=== PATIENT | female | born 1945 | race Asian ===

== ENCOUNTER 2020-08-06 13:58 | Inpatient (IN) | payer MEDICARE, OTHER ==
[~2020-08-06] VITALS: Ht 152.4 cm; Wt 56.2 kg
--- NOTE | 2020-08-06 14:00 | NUR ---
PT BIB FAMILY, O2SAT DECREASED TO 78%,87% ON RA DURING TRIAGE, COVID +. PT IS AAOX2, HOOKED TO O2 VIA NC AND HOOKED TO PHYSICIAN RELATIONS MANAGER, KEPT RESTED AND COMFORTABLE. WILL CONTINUE TO MONITOR.
--- NOTE | 2020-08-06 14:18 | NUR ---
IV LINE ESTABLISHED.
--- NOTE | 2020-08-06 14:23 | NUR ---
AT BEDSIDE FOR EVAL.
--- NOTE | 2020-08-06 15:11 | NUR ---
covid swab antigen collected sent to lab
[2020-08-06 15:24] LABS: BASOPHILS % (AUTO) 0.4 % (0.0-2.0); HEMATOCRIT 36 % (33-45); HEMOGLOBIN 12.2 g/dL (11.5-14.8); LYMPHOCYTES # (AUTO) 0.7 /CMM (0.8-4.8); LYMPHOCYTES % (AUTO) 11.3 % (20.0-44.0); MEAN CORPUSCULAR HGB CONC 34 g/dl (31.0-36.0); MEAN CORPUSCULAR VOLUME 90 fL (82-100); MONOCYTES # (AUTO) 0.2 /CMM (0.1-1.30); NEUTROPHILS # (AUTO) 5.1 /CMM (1.8-8.9); NEUTROPHILS % (AUTO) 85.3 % (43.0-81.0); PLATELET COUNT (AUTO) 268 /CMM (150-450); RED BLOOD CELL COUNT(AUTO) 3.99 MIL/uL (4.0-5.2)
[2020-08-06] MEDS ORDERED: AZITHROMYCIN 500 MG in IV D5W 250 ML IV ONE (15:30)
[2020-08-06] MEDS ORDERED: AZTREONAM 1 G in IV NS 0.9% 100 ML IV ONE (15:30)
[2020-08-06] MEDS ORDERED: DEXAMETHASONE SOD PHOSPHATE 10 MG/ML VIAL IV ONE (15:30)
[2020-08-06 15:39] LABS: ABG BASE EXCESS -1.1 mmol/L; ABG OXYGEN SATURATION 95.7 % (92.0-98.5); ABG PCO2 33.2 mmHg (35.0-45.0); ABG PH 7.446 (7.350-7.450); ABG PO2 83.4 mmHg (75.0-100.0); AaDO2 77.1 mmHg; COHb 0.2 % (0.5-1.5); MetHb 0.2 % (0.0-1.5); O2Hb 95.3 % (94.0-97.0); SITE, ABG Right Radial; VENT MODE, BG Nasal Cannula
[2020-08-06 15:46] LABS: CALCIUM, SERUM 8.4 mg/dL (8.5-10.1); CARBON DIOXIDE 28 mmol/L (21-32); CHLORIDE 96 mmol/L (98-107); CREATININE 0.9 mg/dL (0.6-1.3); GLUCOSE 114 mg/dL (74-106); POTASSIUM 3.9 mmol/L (3.5-5.1); SODIUM SERUM 131 mmol/L (136-145); UREA NITROGEN, BLOOD 12 mg/dL (7-18)
[2020-08-06 15:51] LABS: ALANINE AMINOTRANSFERASE 39 U/L (12-78); ALBUMIN 2.5 g/dL (3.4-5.0); ALKALINE PHOSPHATASE 77 U/L (46-116); ASPARTATE AMINOTRANSFERASE 58 U/L (15-37); BILIRUBIN,DIRECT 0.2 mg/dL (0.0-0.2); BILIRUBIN,TOTAL 0.6 mg/dL (0.2-1.0); TOTAL PROTEIN, SERUM 6.9 g/dL (6.4-8.2)
[2020-08-06] MEDS ORDERED: DEXAMETHASONE SOD PHOSPHATE 10 MG/ML VIAL ONE (15:51)
[2020-08-06 16:08] LABS: D-DIMER 0.96 mg/L(FEU (0.17-0.50)
[2020-08-06] MEDS ORDERED: ZINC50TA65 PO (16:09)
[2020-08-06] MEDS ORDERED: CYAN-51 PO (16:09)
[2020-08-06] MEDS ORDERED: ASCO-352 PO (16:09)
[2020-08-06] MEDS ORDERED: METO25TA4 PO (16:09)
[2020-08-06] MEDS ORDERED: LOSA1TAB36 PO (16:09)
[2020-08-06] MEDS ORDERED: ATOR10TA PO (16:09)
[2020-08-06 16:32] LABS: CREATINE KINASE, TOTAL 46 U/L (26-192); FERRITIN 2015 ng/mL (8-388)
[2020-08-06 16:37] LABS: C-REACTIVE PROTEIN 8.2 mg/dL (0.0-0.9)
--- NOTE | 2020-08-06 16:58 | NUR ---
urine collected sent to lab
[2020-08-06 17:14] LABS: BILIRUBIN,URINE Negative (NEGATIVE); COLOR,URINE YELLOW (YELLOW); LEUKOCYTE ESTERASE ,URINE Negative (NEGATIVE); NITRITE, URINE Negative (NEGATIVE); PROTEIN,URINE Negative (NEGATIVE); UGLUCOSE Negative (NEGATIVE); UROBILINOGEN,URINE 0.2 EU/dL (0.2)
[2020-08-06] MEDS ORDERED: HYDROCODONE/APAP 5/325MG TABLET PO PRN (18:30)
[2020-08-06] MEDS ORDERED: MAGNESIUM HYDROXIDE 30 ML UDC PO PRN (18:30)
[2020-08-06] MEDS ORDERED: ZOLPIDEM TARTRATE 5 MG TABLET PO PRN (18:30)
[2020-08-06] MEDS ORDERED: MAG HYDROX/AL HYDROX/SIMETH 30 ML UDC PO PRN (18:30)
[2020-08-06] MEDS ORDERED: ACETAMINOPHEN 325 MG TABLET PO PRN (18:30)
[2020-08-06] MEDS ORDERED: Z GUARD REMEDY 2 OZ OINT TP PRN (18:30)
[2020-08-06] MEDS ORDERED: ONDANSETRON HCL/PF 4 MG/2 ML VIAL IVP PRN (18:30)
[2020-08-06] MEDS ORDERED: ENOXAPARIN SODIUM 40 MG/0.4 ML DISP.SYRIN SQ ONE (18:40)
[2020-08-06 18:41] LABS: C-REACTIVE PROTEIN 8.5 mg/dL (0.0-0.9)
[2020-08-06] MEDS: ENOXAPARIN SODIUM 40 MG/0.4 ML DISP.SYRIN SQ SCH (18:41)
--- NOTE | 2020-08-06 19:30 | NUR ---
pt admitted to transition area pending tele bed. pt here for sob, pt aaox4, -sob. on 2lnc sat above 95%, pt not in any distress, pt pending remdesivir tx. pt vss, wctm
[2020-08-06] MEDS ORDERED: REMDESIVIR (CHARGED) 200 MG, *LOADING DOSE 1 EA in IV NS 0.9% 210 ML IV ONE (20:00)
[2020-08-07 05:34] LABS: BASOPHILS % (AUTO) 0.3 % (0.0-2.0); HEMATOCRIT 39 % (33-45); HEMOGLOBIN 13.3 g/dL (11.5-14.8); LYMPHOCYTES # (AUTO) 0.6 /CMM (0.8-4.8); LYMPHOCYTES % (AUTO) 18.4 % (20.0-44.0); MEAN CORPUSCULAR HGB CONC 34 g/dl (31.0-36.0); MEAN CORPUSCULAR VOLUME 90 fL (82-100); MONOCYTES # (AUTO) 0.1 /CMM (0.1-1.30); MONOCYTES % (AUTO) 2.1 % (2.0-12.0); NEUTROPHILS # (AUTO) 2.4 /CMM (1.8-8.9); NEUTROPHILS % (AUTO) 79.2 % (43.0-81.0); PLATELET COUNT (AUTO) 278 /CMM (150-450); RED BLOOD CELL COUNT(AUTO) 4.29 MIL/uL (4.0-5.2); WHITE BLOOD COUNT (AUTO) 3.1 K/uL (4.3-11.0)
[2020-08-07 05:49] LABS: ALBUMIN 2.4 g/dL (3.4-5.0); BILIRUBIN,DIRECT 0.2 mg/dL (0.0-0.2); BILIRUBIN,TOTAL 0.4 mg/dL (0.2-1.0); CALCIUM, SERUM 8.6 mg/dL (8.5-10.1); CREATININE 0.8 mg/dL (0.6-1.3); MAGNESIUM 2.4 mg/dL (1.8-2.4); PHOSPHORUS 4.4 mg/dL (2.5-4.9); POTASSIUM 4.6 mmol/L (3.5-5.1); TOTAL PROTEIN, SERUM 7.1 g/dL (6.4-8.2)
[2020-08-07 05:55] LABS: D-DIMER 0.86 mg/L(FEU (0.17-0.50)
[2020-08-07 06:04] LABS: THYROID STIMULATING HORMONE 0.419 uIU/mL (0.358-3.74)
--- NOTE | 2020-08-07 07:36 | NUR ---
RECEIVED REPORT FROM CHARO COCHRAN FOR DESTINY. PT IS AAOX3, NOT IN RESPIRATORY DISTRESS, V/S STABLE, KEPT RESTED AND COMFORTABLE. WILL CONTINUE TO MONITOR.
[2020-08-07] MEDS ORDERED: PANTOPRAZOLE 40 MG TABLET.DR PO ONE (07:40)
[2020-08-07] MEDS: PANTOPRAZOLE 40 MG TABLET.DR PO SCH (07:45)
[2020-08-07] MEDS ORDERED: DEXAMETHASONE SOD PHOSPHATE 10 MG/ML VIAL ONE (08:17)
[2020-08-07] MEDS: ATORVASTATIN 10 MG TABLET PO SCH (08:37)
[2020-08-07] MEDS: DEXAMETHASONE SOD PHOSPHATE 10 MG/ML VIAL IV SCH (08:37)
[2020-08-07] MEDS: LOSARTAN/HCTZ 50-12.5MG/ 1 EA TABLET PO SCH (08:37)
[2020-08-07] MEDS: ASCORBIC ACID 500 MG TABLET PO SCH (08:38)
[2020-08-07] MEDS: CYANOCOBALAMIN 500 MCG TABLET PO SCH (08:38)
[2020-08-07] MEDS: ZINC SULFATE 220 MG CAPSULE PO SCH (08:38)
[2020-08-07] MEDS: METOPROLOL SUCCINATE 25 MG TAB.SR.24H PO SCH (08:38)
--- NOTE | 2020-08-07 08:38 | NUR ---
CLERICAL DENTIST ASSISTANT AT BEDSIDE FOR XRAY.
[2020-08-07] MEDS: IV 1/2NS 1000 ML 1,000 ML IV PRN (10:05)
--- NOTE | 2020-08-07 16:24 | NUR ---
AT BEDSIDE FOR EVAL.
[2020-08-07] MEDS: REMDESIVIR (CHARGED) 100 MG in IV NS 0.9% 100 ML IV SCH (20:59)
[2020-08-07] MEDS: ENOXAPARIN SODIUM 40 MG/0.4 ML DISP.SYRIN SQ SCH (22:47)
[2020-08-08] VITALS (7 sets, daily range): BP systolic 120–138; BP diastolic 59–79
--- NOTE | 2020-08-08 00:21 | NUR ---
BED ASSIGNMENT 205-2
--- NOTE | 2020-08-08 01:14 | NUR ---
report given to mari matias, pt will be transported to 2nd floor
--- NOTE | 2020-08-08 01:30 | NUR ---
initial vs show that patient saturating 84% on 6lnc. patient placed on 1liter face mask with spo2 increase to 85%. patient placed on nrb mask at 15liters now saturating at 92%. will cont to monitor.
--- NOTE | 2020-08-08 01:30 | NUR ---
ADMISSION PATIENT ORIENTED TO ROOM BED DOWN LOCKED IN NO APPARENT DISTRESS. CALL LIGHT PLACED WITHIN REACH. NEW ORDERS RECIEVED. PATIENT HAD TO BE PLACED ON 15 LNRB TO GET SPO2 GREATER THEN 92%. BED ALARM ACTIVATED. PT HAS RIGHT AC 20 GAUGE. FLUSHED IV INACT. Addendum: 08/08/20 at 0336 by KE MEZA RN TELE MONITOR APPLIED PT SR
--- NOTE | 2020-08-08 03:30 | NUR ---
ADMISSION NOTE PATIENT ADMITTED TO 205-2 TELEMETRY AT 0120 FROM ER FOR COVID 19 AND ACUTE RESP FAILURE. CALL MADE TO GRANDDAUGHTER FOR ADMISSION SCREENING. PATIENT PRIMARILY SPEAKS [place] WITH LIMITED CITIZEN OF [place]. GRAND DAUGHTER RASHAUN STATED SHE WAS SOMEWHAT FAMILIAR WITH GRANDMOTHERS MEDICAL HISTORY AND ANSWERED MOST ADMISSION QUESTIONS. SHE WAS UPDATED WITH PLAN OF CARE. EARLIER PATIENT WAS MOVED IN TO SHARE ROOM WITH . PT SATURATINT 97% ON 15 L NON REBREATHER. IN NO APPARENT DISTRESS AT THIS TIME. PT LIVES WITH ALONE IN SENIOR APARTMENT HOUSING. THEY DON'T HAVE ANY SPECIAL SERVICES AT THEIR PLACE OF RESIDENCE.
[2020-08-08] MEDS: IV 1/2NS 1000 ML 1,000 ML IV PRN (06:38)
[2020-08-08] MEDS: PANTOPRAZOLE 40 MG TABLET.DR PO SCH (06:40)
[2020-08-08 07:42] LABS: BASOPHILS % (AUTO) 0.1 % (0.0-2.0); HEMATOCRIT 38 % (33-45); LYMPHOCYTES # (AUTO) 0.9 /CMM (0.8-4.8); LYMPHOCYTES % (AUTO) 9.5 % (20.0-44.0); MEAN CORPUSCULAR HGB CONC 34 g/dl (31.0-36.0); MEAN CORPUSCULAR VOLUME 90 fL (82-100); MONOCYTES # (AUTO) 0.3 /CMM (0.1-1.30); MONOCYTES % (AUTO) 3.8 % (2.0-12.0); NEUTROPHILS # (AUTO) 7.8 /CMM (1.8-8.9); NEUTROPHILS % (AUTO) 86.6 % (43.0-81.0); PLATELET COUNT (AUTO) 352 /CMM (150-450); RED BLOOD CELL COUNT(AUTO) 4.22 MIL/uL (4.0-5.2); WHITE BLOOD COUNT (AUTO) 9.1 K/uL (4.3-11.0)
[2020-08-08 08:04] LABS: ALBUMIN 2.2 g/dL (3.4-5.0); BILIRUBIN,DIRECT 0.2 mg/dL (0.0-0.2); BILIRUBIN,TOTAL 0.4 mg/dL (0.2-1.0); CALCIUM, SERUM 8.5 mg/dL (8.5-10.1); CREATININE 0.8 mg/dL (0.6-1.3); POTASSIUM 4.3 mmol/L (3.5-5.1); TOTAL PROTEIN, SERUM 6.4 g/dL (6.4-8.2)
--- NOTE | 2020-08-08 08:04 | NUR ---
NEWS EDITOR OPENING NOTE PATIENT IS IN BED RESTING. PATIENT IS IN NO ACUTE DISTRESS. NO SOB NOTED. PATIENT IS ON NON REBREATHER ON 15L. PATIENT IS ON TUBE HEATER READING SR 71. SAFETY PRECAUTIONS ARE IN PLACE. BED IS LOCKED AND IN THE LOWEST POSITION. SIDE RAILS ARE UP CALL LIGHT WITHIN REACH. WILL CONTINUE TO MONITOR CLOSELY THROUGH OUT THE SHIFT.
--- NOTE | 2020-08-08 09:00 | NUR ---
CARTON MAKER NOTE PATIENT IN NEED OF MIDLINE AFTER MULTIPLE ATTEMPTS FOR PERIPHERAL IV. INFORMED SANDOR TOPETE. PER SANDOR VAUGHAN ORDER FOR MIDLINE. YASMEEN SPECIALTY MANUFACTURING SUPERVISOR AWARE. PER YASMEEN SHE INFORMED MIDLINE NURSE OF ORDER.
[2020-08-08] MEDS: DEXAMETHASONE SOD PHOSPHATE 10 MG/ML VIAL IV SCH (09:10)
[2020-08-08] MEDS: METOPROLOL SUCCINATE 25 MG TAB.SR.24H PO SCH (09:10)
[2020-08-08] MEDS: ASCORBIC ACID 500 MG TABLET PO SCH (09:11)
[2020-08-08] MEDS: ATORVASTATIN 10 MG TABLET PO SCH (09:11)
[2020-08-08] MEDS: ZINC SULFATE 220 MG CAPSULE PO SCH (09:11)
[2020-08-08] MEDS: CYANOCOBALAMIN 500 MCG TABLET PO SCH (09:11)
[2020-08-08] MEDS: LOSARTAN/HCTZ 50-12.5MG/ 1 EA TABLET PO SCH (09:12)
--- NOTE | 2020-08-08 12:46 | NUR ---
HOG KILLER NOTE SPOKE WITH DR. HUGHES. PER DR. HUGHES PLACE AN ORDER FOR 1 UNIT OF CONVALESCENT PLASMA. AWARE.
--- NOTE | 2020-08-08 15:36 | NUR ---
SHEET METAL WORKER HELPER NOTE PER YASMEEN MIDLINE NURSE COMING IN THE EVENING.
--- NOTE | 2020-08-08 19:49 | NUR ---
WAREHOUSE ASSISTANT CLOSING NOTE PATIENT IS IN BED RESTING. PATIENT IS ON NON REBREATHER MASK 15L. TOLERATING WELL. NO SOB NOTED. PATIENT KEPT CLEAN DRY AND COMFORTABLE THROUGH OUT THE SHIFT. PATIENT HAS NO IV ACCESS, AWAITING FOR MIDLINE PLACEMENT. NO SIGNS ON DISTRESS NOTED. SAFETY PRECAUTIONS ARE IN PLACE. BED IN THE LOWEST POSITION, WITH BREAK ON. SIDE RAILS ARE UP, CALL LIGHT WITHIN REACH. ENDORSE PATIENT TO THE DAIRY HELPER NURSE FOR DESTINY.
--- NOTE | 2020-08-08 19:50 | NUR ---
TELE/RN OPENING NOTES: RECEIVED PATIENT IN BED RESTING COMFORTABLY. A/OX4 VERBALLY RESPONSIVE AND ABLE TO MAKE NEEDS KNOWN. [place], BUT ABLE TO UNDERSTAND AND COMMUNICATE WITH MINIMAL AMERICAN. TELE READING OF SR. PATIENT IS ON NON REBREATHER MASK 15L. SATURATING WELL AT 93%. NO SOB NOTED. PATIENT HAS NO IV ACCESS, AWAITING FOR MIDLINE PLACEMENT TONIGHT. NO S/S OF ACUTE DISTRESS NOTED. SAFETY PRECAUTIONS ARE IN PLACE. BED IN THE LOWEST POSITION, WITH BREAK ON. SIDE RAILS ARE UP X2, CALL LIGHT WITHIN REACH. WILL CONTINUE TO MONITOR PT. CLOSELY.
[2020-08-08] MEDS: ENOXAPARIN SODIUM 40 MG/0.4 ML DISP.SYRIN SQ SCH (21:49)
--- NOTE | 2020-08-08 23:00 | NUR ---
TELE/RN NOTES: MIDLINE NURSE KALYAN AT BEDSIDE. MIDLINE PLACED ON THE RIGHT UA #18, INTACT AND PATENT. FLUSHING WELL. IVF RUNNING. PT HAS NO C/O PAIN AT THIS TIME.
[2020-08-08] MEDS: REMDESIVIR (CHARGED) 100 MG in IV NS 0.9% 100 ML IV SCH (23:14)
[2020-08-09] VITALS (10 sets, daily range): BP systolic 116–137; BP diastolic 72–81
[2020-08-09] MEDS: IV 1/2NS 1000 ML 1,000 ML IV PRN ×2 (06:30→22:12)
[2020-08-09 07:02] LABS: ALBUMIN 2.2 g/dL (3.4-5.0); BILIRUBIN,DIRECT 0.3 mg/dL (0.0-0.2); BILIRUBIN,TOTAL 0.6 mg/dL (0.2-1.0); CALCIUM, SERUM 8.3 mg/dL (8.5-10.1); CREATININE 0.8 mg/dL (0.6-1.3); POTASSIUM 3.9 mmol/L (3.5-5.1)
[2020-08-09 07:26] LABS: HEMATOCRIT 37 % (33-45); HEMOGLOBIN 12.6 g/dL (11.5-14.8); LYMPHOCYTES # (AUTO) 0.6 /CMM (0.8-4.8); LYMPHOCYTES % (AUTO) 6.9 % (20.0-44.0); MEAN CORPUSCULAR HGB CONC 35 g/dl (31.0-36.0); MEAN CORPUSCULAR VOLUME 90 fL (82-100); MONOCYTES # (AUTO) 0.1 /CMM (0.1-1.30); MONOCYTES % (AUTO) 1.6 % (2.0-12.0); NEUTROPHILS % (AUTO) 91.5 % (43.0-81.0); PLATELET COUNT (AUTO) 304 /CMM (150-450); RED BLOOD CELL COUNT(AUTO) 4.06 MIL/uL (4.0-5.2); WHITE BLOOD COUNT (AUTO) 8.7 K/uL (4.3-11.0)
--- NOTE | 2020-08-09 07:55 | NUR ---
TELE/RN CLOSING NOTES: PATIENT IN BED RESTING COMFORTABLY. A/OX4. NO SIGNIFICANT CHANGES IN CONDITION. TELE READING OF SR. PATIENT IS ON NON REBREATHER MASK 15L. SATURATING WELL AT 94%. NO SOB NOTED. IV ON THE BRANT MIDLINE 18G, WITH IVF RUNNING AT 75MLS/HR. NO S/S OF ACUTE DISTRESS NOTED. SAFETY PRECAUTIONS ARE IN PLACE. BED IN THE LOWEST POSITION, WITH BREAK ON. SIDE RAILS ARE UP X2, CALL LIGHT WITHIN REACH. ALL DUE MEDS GIVEN ORDERED. ALL NURSING NEEDS MET AND RENDERED. WILL CONTINUE PLAN OF CARE. ENDORSED TO DAY SHIFT RN FOR DESTINY.
[2020-08-09] MEDS: ASCORBIC ACID 500 MG TABLET PO SCH (08:34)
[2020-08-09] MEDS: ZINC SULFATE 220 MG CAPSULE PO SCH (08:34)
[2020-08-09] MEDS: DEXAMETHASONE SOD PHOSPHATE 10 MG/ML VIAL IV SCH (08:34)
[2020-08-09] MEDS: PANTOPRAZOLE 40 MG TABLET.DR PO SCH (08:35)
[2020-08-09] MEDS: ATORVASTATIN 10 MG TABLET PO SCH (08:35)
[2020-08-09] MEDS: CYANOCOBALAMIN 500 MCG TABLET PO SCH (08:35)
[2020-08-09] MEDS: METOPROLOL SUCCINATE 25 MG TAB.SR.24H PO SCH (08:36)
[2020-08-09] MEDS: LOSARTAN/HCTZ 50-12.5MG/ 1 EA TABLET PO SCH (08:36)
--- NOTE | 2020-08-09 11:17 | NUR ---
TELE/RN NOTE REDUCED OXYGEN FLOW FROM 15L/MIN TO 10L/MIN REDUCED OXYGEN FLOW FROM 15L/MIN VIA NON-REBREATHER MASK TO 10L/MIN NON-REBREATHER MASK AND OXYGEN SATURATION MAINTAINING AT 95%. WILL CONTINUE TO MONITOR..
--- NOTE | 2020-08-09 17:00 | NUR ---
TELE/RN NOTE OXYGEN FLOW INCREASED TO 15L/MIN FROM 10L/MIN VIA NON-REBREATHER MASK DUE PATIENT SATURATION LEVEL WAS 87% AT 10L/MIN VIA NON-REBREATHER MASK. WILL CONTINUE TO MONITOR.
--- NOTE | 2020-08-09 18:26 | NUR ---
TELE/RN CLOSING NOTE THE PATIENT IS ALERT AND ORIENTED X3. THE PATIENT DENIES PAIN. THE PATIENT IS RECEIVING OXYGEN AT 15L/MIN VIA NON-REBREATHER MASK. DENIES SOB. RESPIRATION REGULAR AND UNLABORED. THE PATIENT IS IN NO APPARENT DISTRESS. BRANT G 18 MIDLINE PATENT AND CONVALESCENT PLASMA INFUSING PER ORDER. NO S/S INFILTRATION OR ADVERSE SIDE EFFECTS NOTED. TELE BOX READING IS SR 70. BED LOW AND LOCKED. SIDE RAILS UP X3. CALL LIGHT WITHIN REACH. WILL CONTINUE TO MONITOR.
--- NOTE | 2020-08-09 20:26 | NUR ---
SAP BPC DEVELOPER OPENING NOTES PT RECEIVED AT BEDSIDE. PT ALERT AND ORIENTED X3. PRIMARY LANGUAGE IS SYRIAC. UNDERSTANDS BASIC COMMANDS. PT ON 15L NONREBREATHER. TOLERATING WELL. O2 SATURATION AT 97%. BRANT MIDLINE #18 . PATENT. NO SIGNS OF OCCLUSIONS, NO SIGNS OF INFILTRATION. PLASMA INFUSING PER ORDER. PT TOLERATING WELL. WILL CONTINUE TO MONITOR. WILL CONTINUE PLAN OF CARE.
[2020-08-09] MEDS: ENOXAPARIN SODIUM 40 MG/0.4 ML DISP.SYRIN SQ SCH (21:37)
[2020-08-09] MEDS: REMDESIVIR (CHARGED) 100 MG in IV NS 0.9% 100 ML IV SCH (23:07)
[2020-08-10] VITALS (9 sets, daily range): BP systolic 126–146; BP diastolic 66–83
--- NOTE | 2020-08-10 06:41 | NUR ---
MS2/RN PATIENT IS AWAKE, ALERT, ORIENTED, COMFORTABLE, NO C/O PAIN, NO DISTRESS NOTED, STILL ON 15L/MIN NRM, CALL LIGHT IN REACH, ALL NEEDS ATTENDED AT THIS TIME, WILL CONTINUE TO MONITOR.
--- NOTE | 2020-08-10 07:11 | NUR ---
FLAT KNITTER CLOSING NOTES PT LAYING IN BED. CALM, COOPERATIVE. ALERT AND ORIENTED TIMES 3. PRIMARY LANGUAGE IS AZERI, BUT ABLE TO COMMUNICATE WITH BASIC KHMER. vitals: 128/ 72, pulse 71, resp. 20, temp 97.9, o2 sat. 95%. SINUS RHYTHM 78. BRANT MIDLINE #18 FLUSHING WELL, PATENT. NO OCCLUSIONS, NO INFILTRATION. WILL ENDORSE TO LAP MACHINE OPERATOR. WILL CONTINUE TO MONITOR. WILL CONTINUE PLAN OF CARE.
[2020-08-10 07:14] LABS: BASOPHILS % (AUTO) 0.1 % (0.0-2.0); HEMATOCRIT 32 % (33-45); HEMOGLOBIN 11.2 g/dL (11.5-14.8); LYMPHOCYTES # (AUTO) 0.5 /CMM (0.8-4.8); LYMPHOCYTES % (AUTO) 6.4 % (20.0-44.0); MEAN CORPUSCULAR HGB CONC 35 g/dl (31.0-36.0); MEAN CORPUSCULAR VOLUME 90 fL (82-100); MONOCYTES # (AUTO) 0.2 /CMM (0.1-1.30); MONOCYTES % (AUTO) 2.3 % (2.0-12.0); NEUTROPHILS # (AUTO) 7.6 /CMM (1.8-8.9); NEUTROPHILS % (AUTO) 91.2 % (43.0-81.0); PLATELET COUNT (AUTO) 281 /CMM (150-450); RED BLOOD CELL COUNT(AUTO) 3.57 MIL/uL (4.0-5.2); WHITE BLOOD COUNT (AUTO) 8.4 K/uL (4.3-11.0)
[2020-08-10 07:27] LABS: BILIRUBIN,DIRECT 0.3 mg/dL (0.0-0.2); BILIRUBIN,TOTAL 0.6 mg/dL (0.2-1.0); CALCIUM, SERUM 8.4 mg/dL (8.5-10.1); CREATININE 0.6 mg/dL (0.6-1.3); MAGNESIUM 2.2 mg/dL (1.8-2.4); POTASSIUM 3.4 mmol/L (3.5-5.1); TOTAL PROTEIN, SERUM 5.7 g/dL (6.4-8.2)
[2020-08-10] MEDS: PANTOPRAZOLE 40 MG TABLET.DR PO SCH (08:45)
[2020-08-10] MEDS: LOSARTAN/HCTZ 50-12.5MG/ 1 EA TABLET PO SCH (08:45)
[2020-08-10] MEDS: ATORVASTATIN 10 MG TABLET PO SCH (08:45)
[2020-08-10] MEDS: CYANOCOBALAMIN 500 MCG TABLET PO SCH (08:45)
[2020-08-10] MEDS: ZINC SULFATE 220 MG CAPSULE PO SCH (08:46)
[2020-08-10] MEDS: METOPROLOL SUCCINATE 25 MG TAB.SR.24H PO SCH (08:46)
[2020-08-10] MEDS: ASCORBIC ACID 500 MG TABLET PO SCH (08:46)
[2020-08-10] MEDS: DEXAMETHASONE SOD PHOSPHATE 10 MG/ML VIAL IV SCH (08:46)
[2020-08-10] MEDS ORDERED: POTASSIUM CHLORIDE 20 MEQ TAB.PRT.SR PO SCH (10:00)
--- NOTE | 2020-08-10 13:00 | NUR ---
HOUSE VISITOR NOTES TITRATED PATIENTS OXYGEN TO 10L VIS SIMPLE MASK PER DR. ANDRADE ORDERS, PATIENTS SATURATION DROPED TO 80-82%. PATIENT PLACED BACK TO 15L NONE REBREATHER SATURATING 95%-97% WILL CONTINUE TO MONITOR.
--- NOTE | 2020-08-10 19:00 | NUR ---
STERILIZATION SPECIALIST NOTES PATIENT IN BED RESTING NO SOB OR ACUTE DISTRESS NOTED. PATIENT ON 15L NONE REBREATHER SATURATING ABOVE 95%. ALL DUE MEDICATIONS ADMINISTERED. ALL NEEDS MET. WILL ENDORSE CARE TO PM SHIFT.
--- NOTE | 2020-08-10 19:58 | NUR ---
RETAIL ACCOUNT SPECIALIST OPENING NOTES PT RECEIVED AT BEDSIDE. CALM, COOPERATIVE PRIMARY LANGUAGE IS UKRAINIAN. UNDERSTANDS BASIC COMMAND. ALERT AND ORIENTED X3. SINUS RHYTHM 78. PT ON 15L NONREBREATHER MASK. TOLERATING WELL. BRANT MIDLINE FLUSHING WELL, PATENT, INTACT. NO OCCLUSIONS, NO INFILTRATIONS. BED LOCKED, BED ALARM CHECKED. PT ON SEMI FOWLERS POSITION. WILL CONTINUE TO MONITOR. WILL CONTINUE PLAN OF CARE.
[2020-08-10] MEDS: ENOXAPARIN SODIUM 40 MG/0.4 ML DISP.SYRIN SQ SCH (20:39)
[2020-08-10] MEDS: REMDESIVIR (CHARGED) 100 MG in IV NS 0.9% 100 ML IV SCH (22:45)
[2020-08-11] VITALS: BP 123/76
[2020-08-11 04:00] VITALS: BP 124/80
--- NOTE | 2020-08-11 06:58 | NUR ---
MOISTURE CONDITIONER OPERATOR CLOSING NOTES PT LAYING IN BED. AWAKE. CALM, COOPERATIVE. ALERT AND ORIENTED X3. PRIMARY LANGUAGE IS NEPALI, UNDERSTANDS BASIC COMMANDS IN JAMAICAN. PT ON 15L NONREBREATHER. TOLERATING WELL. NO SOB NOTED. EVEN AND UNLABORED PULSE OX 100%. VITAL SIGNS: 124/80, PULSE 69, RESP.20, TEMP. 97.8. SINUS RHYTHM 86. BRANT MIDLINE PATENT, FLUSHING WELL. NO OCCLUSIONS. NO INFILTRATION. WILL CONTINUE TO MONITOR. WILL ENDORSE TO UPCOMING SHIFT. WILL CONTINUE PLAN OF CARE.
--- NOTE | 2020-08-11 07:03 | NUR ---
GAS DISPATCHER OPENING NOTE RECEIVED PT IN BED AWAKE AT THIS TIME. AOX4.NO S/S OF ANY ACUTE DISTRESS NOTED, NO C/O PAIN AT THIS TIME. PT NOTED ON 15LPM NON REBREATHER. EXTERNAL TELE MONITOR READING SR 89. BRANT MIDLINE NOTED, INTACT, PATENT AND FLUSHING WELL. ASPIRATIONS AND SAFETY PRECAUTIONS IN PLACE AND MAINTAINED AT ALL TIMES. BED IN LOWEST LOCKED POSITION, SIDE RAILS UP, HOB ELEVATED, TABLE AND CALL LIGHT WITHIN REACH. WILL CONTINUE TO MONITOR.
[2020-08-11 07:36] LABS: BASOPHILS % (AUTO) 0.1 % (0.0-2.0); HEMATOCRIT 34 % (33-45); HEMOGLOBIN 11.7 g/dL (11.5-14.8); LYMPHOCYTES # (AUTO) 0.6 /CMM (0.8-4.8); LYMPHOCYTES % (AUTO) 7.1 % (20.0-44.0); MEAN CORPUSCULAR HGB CONC 34 g/dl (31.0-36.0); MEAN CORPUSCULAR VOLUME 90 fL (82-100); MONOCYTES # (AUTO) 0.3 /CMM (0.1-1.30); MONOCYTES % (AUTO) 2.9 % (2.0-12.0); NEUTROPHILS # (AUTO) 7.9 /CMM (1.8-8.9); NEUTROPHILS % (AUTO) 89.9 % (43.0-81.0); PLATELET COUNT (AUTO) 311 /CMM (150-450); WHITE BLOOD COUNT (AUTO) 8.8 K/uL (4.3-11.0)
[2020-08-11 08:35] LABS: CALCIUM, SERUM 8.8 mg/dL (8.5-10.1); CREATININE 0.7 mg/dL (0.6-1.3); MAGNESIUM 2.6 mg/dL (1.8-2.4); PHOSPHORUS 3.3 mg/dL (2.5-4.9); POTASSIUM 4.1 mmol/L (3.5-5.1)
[2020-08-11] MEDS: CYANOCOBALAMIN 500 MCG TABLET PO SCH (09:56)
[2020-08-11] MEDS: ZINC SULFATE 220 MG CAPSULE PO SCH (09:56)
[2020-08-11] MEDS: ASCORBIC ACID 500 MG TABLET PO SCH (09:57)
[2020-08-11] MEDS: LOSARTAN/HCTZ 50-12.5MG/ 1 EA TABLET PO SCH (09:57)
[2020-08-11] MEDS: ATORVASTATIN 10 MG TABLET PO SCH (09:57)
[2020-08-11] MEDS: DEXAMETHASONE SOD PHOSPHATE 10 MG/ML VIAL IV SCH (09:58)
[2020-08-11] MEDS: METOPROLOL SUCCINATE 25 MG TAB.SR.24H PO SCH (09:58)
[2020-08-11] MEDS: PANTOPRAZOLE 40 MG TABLET.DR PO SCH (10:08)
--- NOTE | 2020-08-11 11:00 | NUR ---
RECEIVED ORDERS FROM DR HUGHES TO TITRATE PT FROM 15LPM NON REBREATHER TO 6LPM NC OR 10LPM FACE MASK TO KEEP SPO2>90%. ORDERS CARRIED OUT. PT'S SPO2 @ 91% ON 6LPM VIA NC. WILL CONTINUE TO MONITOR
--- NOTE | 2020-08-11 15:00 | NUR ---
RASHAUN ([phone]), PT'S DAUGHTER CALLED AND WAS UPDATED. WILL CONTINUE WITH PLAN OF CARE
--- NOTE | 2020-08-11 16:29 | NUR ---
PT ON OXYGEN 6LPM VIA NC, SPO2 OF 88%, TITRATED TO 10LPM FACE MASK PER DR NELSON, ORDERS. WILL CONTINUE TO MONITOR
--- NOTE | 2020-08-11 19:04 | NUR ---
RN CLOSING NOTES PT AWAKE IN BED AT THIS TIME. PT REMAINED STABLE THROUGHOUT SHIFT. ALL CARE, NEED, MEDICATIONS AND TREATMENT ADMINISTERED ANTICIPATED PER ORDER. PT KEPT CLEAN AND DRY. PT TITRATED TOLERATED. SAFETY PRECAUTION IN PLACE AND MAINTAINED AT ALL TIMES. BED IN LOWEST LOCKED POSITION, HOB ELEVATED, SIDE RAILS UP X 2, CALL LIGHT AND TABLE WITHIN REACH. ENDORSED TO CARTOGRAPHIC DESIGNER NURSE FOR DESTINY
--- NOTE | 2020-08-11 19:15 | NUR ---
RN NOTES: DURING ENDORSEMENT PATIENT IS ON NON -REBREATHER MASK AT 15L/MIN, PER RN THEY TRIED TO WEAN HER OFF SLOWLY TO NC BUT UNABLE TO TOLERATE AND DESATURATED NOW SHE IS BACK AGAIN TO NON-REBREATHER MASK, AT THIS TIME NO SOB NOTED, LOOKS COMFORTABLE SPO2-90%, A/0X2-3 LAO SPEAKING,ABLE TO COMMUNICATE IN FRENCH, ABLE TO MAKE NEEDS KNOWN,ORIENTED TO UNIT AND STAFF, FALL,SAFETY AND ASPIRATION PRECAUTION OBSERVED, KEPT CALL LIGHT WITHIN EASY REACH.
[2020-08-11 20:00] VITALS: BP 122/72
--- NOTE | 2020-08-11 20:00 | NUR ---
RN NOTES: -ASSISTED TO PEE USING THE BED BELL, WITH LITTLE EXERTION OF EFFORT SHE IS DESATURATING TO 88%, KEPT O2 AT 15L/MIN VIA NON RE-BREATHER MASK, SHE WAS BACK TO 90% AFTER SHE WAS PUT TO REST.
[2020-08-11] MEDS: ENOXAPARIN SODIUM 40 MG/0.4 ML DISP.SYRIN SQ SCH (21:45)
[2020-08-12] VITALS: BP 121/76
--- NOTE | 2020-08-12 00:17 | NUR ---
RN NOTES: AWAKE GIVEN SIPS OF WATER, TOLERATED, KEPT CALL LIGHT WITHIN EASY REACH, NOT IN RESPIRATORY DISTRESS.
[2020-08-12 04:00] VITALS: BP 124/75
--- NOTE | 2020-08-12 04:07 | NUR ---
RN NOTES: AROUND 0330 SHE WAS AWAKE, ASSISTED TO USE BED BELL WHILE IN BED, UNABLE TO TOLERATE STRENUOUS ACTIVITY, AFTER SHE PEE AND REPOSITIONED, HER SPO2 DROP AGAIN TO 87%, NON REBREATHER MAINTAINED IN 15L/MIN, WILL TRY TO TAPER DOWN ONCE SHE WILL BE STABILIZE IN THE MORNING WHEN SHE WAKE UP.
--- NOTE | 2020-08-12 07:42 | NUR ---
RN NOTES: PATIENT IS ASLEEP, CALLS AND NEEDS ATTENDED, ON TELE MONITOR SR-62, ENDORSED TO TITRATE O2 IN THE MORNING IF PATIENT IS ABLE TO TOLERATE ACTIVITY.FOR ABG THIS MORNING. BRANT MIDLINE INTACT.ENDORSED FOR CONTINUITY OF CARE.
[2020-08-12] MEDS: PANTOPRAZOLE 40 MG TABLET.DR PO SCH (07:53)
[2020-08-12 08:00] VITALS: BP 129/79
--- NOTE | 2020-08-12 08:00 | NUR ---
RN Opening note Received patient in bed, awaken able to responds all stimuli, Pt does no appears pain or distress. Skin is warm to touch keep clean/dry intact midline on right upper arm, respiratory even and unlabored with oxygen at 15L via NRM. Kept locked bed with elevated HOB for aspiration precaution and ensure airway and lowest bed foe safety. Call light within reach, will continue to monitor.
[2020-08-12] MEDS: ASCORBIC ACID 500 MG TABLET PO SCH (08:48)
[2020-08-12] MEDS: ZINC SULFATE 220 MG CAPSULE PO SCH (08:48)
[2020-08-12] MEDS: DEXAMETHASONE SOD PHOSPHATE 10 MG/ML VIAL IV SCH (08:48)
[2020-08-12] MEDS: LOSARTAN/HCTZ 50-12.5MG/ 1 EA TABLET PO SCH (08:49)
[2020-08-12] MEDS: METOPROLOL SUCCINATE 25 MG TAB.SR.24H PO SCH (08:50)
[2020-08-12] MEDS: CYANOCOBALAMIN 500 MCG TABLET PO SCH (08:50)
[2020-08-12] MEDS: ATORVASTATIN 10 MG TABLET PO SCH (08:50)
[2020-08-12] MEDS ORDERED: SALINE NASAL SPRAY 0.65% 1 BOTTLE BOTTLE NS PRN (13:30)
--- NOTE | 2020-08-12 18:30 | NUR ---
RN closing Patient in bed resting, does no appears distress or discomfort. Skin is warm to touch, keep clean/dry, intact midline on right upper arm. Respiratory even and unlabored with oxygen at 11L via NRM O2sat 95%. Kept elevated HOB for ensure air way and aspiration precaution and lowest bed for safety. Call light within reach, will endorse night patrol inspector
[2020-08-12 20:00] VITALS: BP 124/80
--- NOTE | 2020-08-12 20:00 | NUR ---
tele regulatory product manager initial notes received report from am nurse and checked the pt in her room she's lying in bed awake andalert with o2 at 10 liters via Non re-breather mask , no signs of any acute distress noted at this time. Denies any pain or any discomfort. tele SR per monitor. Vitals signs within normal limit. kept her warm and comfortable at all times. will continue monitoring. place call light at reach.
[2020-08-12] MEDS: ENOXAPARIN SODIUM 40 MG/0.4 ML DISP.SYRIN SQ SCH (21:19)
[2020-08-13] VITALS: BP 118/72
[2020-08-13 04:00] VITALS: BP 118/80
--- NOTE | 2020-08-13 07:30 | NUR ---
tele traffic attendant closing notes pt back to rest after morning care done. pt still on non re-breather mask . easily tired even just using the bedpan. denies any pain or any discomfort. all due meds given and all needs met. tele SR heart rate 64 per monitor. kept her warm and comfortable at all times. endorse to am nurse for continuity of care. place call light at reach.
--- NOTE | 2020-08-13 07:38 | NUR ---
CONTACT LENS MOLDER OPENING NOTES RECEIVED PATIENT IN BED, AWAKE, A/O X3. PATIENT ON NON-REBREATHER MASK; BREATHING EVEN AND UNLABORED AT THIS TIME. NO SOB NOTED. TELE MONITOR WITH A CURRENT READING OF SR 77. NO COMPLAINS OF PAIN. BRANT MIDLINE PRESENT AND INTACT. SAFETY PRECAUTIONS IN PLACE; BED IN LOW POSITION AND LOCKED, RAILS UP X2, CALL LIGHT WITHIN REACH. WILL CONTINUE TO MONITOR PATIENT.
[2020-08-13 08:00] VITALS: BP 118/73
[2020-08-13] MEDS: CYANOCOBALAMIN 500 MCG TABLET PO SCH (08:26)
[2020-08-13] MEDS: DEXAMETHASONE SOD PHOSPHATE 10 MG/ML VIAL IV SCH (08:27)
[2020-08-13] MEDS: ZINC SULFATE 220 MG CAPSULE PO SCH (08:27)
[2020-08-13] MEDS: ASCORBIC ACID 500 MG TABLET PO SCH (08:27)
[2020-08-13] MEDS: PANTOPRAZOLE 40 MG TABLET.DR PO SCH (08:27)
[2020-08-13] MEDS: METOPROLOL SUCCINATE 25 MG TAB.SR.24H PO SCH (08:28)
[2020-08-13] MEDS: ATORVASTATIN 10 MG TABLET PO SCH (08:28)
[2020-08-13] MEDS: LOSARTAN/HCTZ 50-12.5MG/ 1 EA TABLET PO SCH (08:29)
[2020-08-13 12:00] VITALS: BP 106/67
[2020-08-13 16:00] VITALS: BP 91/58
--- NOTE | 2020-08-13 18:48 | NUR ---
STRUCTURAL STEEL WORKER CLOSING NOTES PATIENT REMAINS IN BED, AWAKE, A/O X3. PATIENT ON NON-REBREATHER MASK AT 10 LPM; BREATHING EVEN AND UNLABORED DURING THE DAY. NO SOB NOTED. TELE MONITOR WITH A CURRENT READING OF SR 73. NO COMPLAINS OF PAIN DURING THE DAY. BRANT MIDLINE PRESENT AND INTACT. ALL NEEDS ATTENDED THROUGHOUT THE DAY. SAFETY PRECAUTIONS IN PLACE; BED IN LOW POSITION AND LOCKED, RAILS UP X2, CALL LIGHT WITHIN REACH. WILL ENDORSE TO BARBER APPRENTICE NURSE.
--- NOTE | 2020-08-13 19:00 | NUR ---
TELE/RN OPENING NOTES: RECEIVED PATIENT IN BED RESTING COMFORTABLY. A/OX4 VERBALLY RESPONSIVE AND ABLE TO MAKE NEEDS KNOWN. BULGARIAN, BUT ABLE TO UNDERSTAND AND COMMUNICATE WITH MINIMAL SOUTH AFRICAN. TELE READING OF SR. PATIENT ON NON-REBREATHER MASK AT 10 LPM; SATURATING WELL AT 95%. NO SOB NOTED. PATIENT HAS NO IV ACCESS, AWAITING FOR MIDLINE PLACEMENT TONIGHT. NO S/S OF ACUTE DISTRESS NOTED. SAFETY PRECAUTIONS ARE IN PLACE. BED IN THE LOWEST POSITION, WITH BREAK ON. SIDE RAILS ARE UP X2, CALL LIGHT WITHIN REACH. WILL CONTINUE TO MONITOR PT. CLOSELY.
[2020-08-13 20:00] VITALS: BP 117/75
[2020-08-13] MEDS: ENOXAPARIN SODIUM 40 MG/0.4 ML DISP.SYRIN SQ SCH (21:16)
[2020-08-14] VITALS: BP 106/68
[2020-08-14 04:00] VITALS: BP 124/72
--- NOTE | 2020-08-14 06:26 | NUR ---
TELE/RN CLOSING NOTES PATIENT REMAINS IN BED, AWAKE, A/O X3. ON NON-REBREATHER MASK AT 10 LPM; BREATHING EVEN AND UNLABORED DURING THE DAY. NO SOB NOTED. TELE MONITOR WITH A CURRENT READING OF SR 73. NO COMPLAINS OF PAIN DURING THE SHIFT. BRANT MIDLINE PRESENT AND INTACT. SAFETY PRECAUTIONS IN PLACE; BED IN LOW POSITION AND LOCKED, RAILS UP X2, CALL LIGHT WITHIN REACH. KEPT CLEAN AND DRY, WARM AND COMFORTABLE ALL SHIFT. ALL NURSING NEEDS MET AND RENDERED, ALL DUE MEDS GIVEN ORDERED. WILL ENDORSED TO DAY SHIFT FOR DESTINY.
--- NOTE | 2020-08-14 07:28 | NUR ---
BORDER GUARD OPENING NOTES PATIENT IS IN BED, AWAKE AND VERBALLY RESPONSIVE. A/O X3, ABLE TO MAKE SIMPLE NEEDS KNOWN, PORTUGUESE-SPEAKING. BREATHING EVEN AND UNLABORED, ON NON-REBREATHER MASK AT 15 LPM, NO SOB. ON TELE MONITORING, READING OF SR, HR IN THE 70'S. BRANT MIDLINE PATENT AND INTACT. SAFETY PRECAUTIONS IN PLACE: BED IN LOCKED AND ON LOWEST POSITION, SIDE RAILS UP X2, CALL LIGHT WITHIN REACH. WILL CONTINUE TO MONITOR.
[2020-08-14] MEDS: PANTOPRAZOLE 40 MG TABLET.DR PO SCH (07:52)
[2020-08-14 08:00] VITALS: BP 102/60
[2020-08-14] MEDS: ATORVASTATIN 10 MG TABLET PO SCH (08:16)
[2020-08-14] MEDS: ASCORBIC ACID 500 MG TABLET PO SCH (08:17)
[2020-08-14] MEDS: DEXAMETHASONE SOD PHOSPHATE 10 MG/ML VIAL IV SCH (08:17)
[2020-08-14] MEDS: CYANOCOBALAMIN 500 MCG TABLET PO SCH (08:17)
[2020-08-14] MEDS: LOSARTAN/HCTZ 50-12.5MG/ 1 EA TABLET PO SCH (08:17)
[2020-08-14] MEDS: ZINC SULFATE 220 MG CAPSULE PO SCH (08:17)
[2020-08-14] MEDS: METOPROLOL SUCCINATE 25 MG TAB.SR.24H PO SCH (08:18)
[2020-08-14 12:00] VITALS: BP 94/61
[2020-08-14 16:00] VITALS: BP 103/61
--- NOTE | 2020-08-14 16:19 | NUR ---
RN NOTES PATIENT REQUESTED IF SHE CAN WALK IN THE ROOM A BIT. ASSISTED PATIENT W/ AMBULATION INSIDE THE ROOM USING A WALKER; ABLE TO AMBULATE 10 FEET, NRB MASK STILL ATTACHED, NO COMPLAINT OF DIZZINESS NOR SOB. ASSISTED BACK TO BED AND REMINDED TO USE CALL LIGHT FOR ASSISTANCE W/ ANY ADLS. WILL CONTINUE TO MONITOR.
[2020-08-14 17:56] LABS: C-REACTIVE PROTEIN 4.5 mg/dL (0.0-0.9)
--- NOTE | 2020-08-14 19:00 | NUR ---
WELDING MACHINE ASSEMBLER CLOSING NOTES PATIENT IS IN BED, AWAKE AND VERBALLY RESPONSIVE. A/O X3, ABLE TO MAKE SIMPLE NEEDS KNOWN. BREATHING EVEN AND UNLABORED, CONTINUES ON NON-REBREATHER MASK AT 10 LPM, NO SOB. ON TELE MONITORING, READING OF SR, HR IN THE LOW 70'S. BRANT MIDLINE PATENT AND INTACT. DUE MEDS GIVEN TODAY. SAFETY PRECAUTIONS MAINTAINED: BED IN LOCKED AND ON LOWEST POSITION, SIDE RAILS UP X2, CALL LIGHT WITHIN REACH. ENDORSED TO SUPERVISOR ORDER TAKERS RN FOR DESTINY.
--- NOTE | 2020-08-14 19:45 | NUR ---
TRUCK AND TRANSPORT MECHANIC NOTES PATIENT IN BE, AWAKE, ALERT AND ORIENTED X 3. BREATHING EVEN AND UNLABORED ON 10L NONREBREATHER. SHOWS NO SIGNS OF ACUTE RESPIRATORY DISTRESS. NO ACUTE PAIN. TELE MONITOR SR. IV ON BRANT MIDLINE. ITS CLEAN DRY AND INTACT. SHOWS NO SIGNS OF INFILTRATION, NO REDNESS. SAFETY PRECAUTIONS IN PLACE. BED IN LOWEST POSITION, LOCKED, AND CALL LIGHT KEPT WITHIN REACH. WILL CONTINUE TO MONITOR
[2020-08-14 20:00] VITALS: BP 100/68
[2020-08-14] MEDS: ENOXAPARIN SODIUM 40 MG/0.4 ML DISP.SYRIN SQ SCH (21:11)
[2020-08-15] VITALS: BP 100/68
[2020-08-15 04:00] VITALS: BP 94/64
--- NOTE | 2020-08-15 06:45 | NUR ---
OFFICE ADMINISTRATION NOTES PATIENT IN BED, AWAKE, ALERT AND ORIENTED X 3. BREATHING EVEN AND UNLABORED ON 10L NONREBREATHER. SHOWS NO SIGNS OF ACUTE RESPIRATORY DISTRESS. NO ACUTE PAIN. TELE MONITOR SR. IV ON BRANT MIDLINE. ITS CLEAN DRY AND INTACT. SHOWS NO SIGNS OF INFILTRATION, NO REDNESS. ALL DUE MEDICATIONS. ALL NEEDS ATTENDED TO. SAFETY PRECAUTIONS IN PLACE. BED IN LOWEST POSITION, LOCKED, AND CALL LIGHT KEPT WITHIN REACH. WILL ENDORSE TO ONCOMING NURSE.
--- NOTE | 2020-08-15 07:15 | NUR ---
PROFESSOR OF COMMUNICATION ARTS OPENING NOTES PATIENT IS IN BED RESTING, AWAKE AND VERBALLY RESPONSIVE. A/O X3, ABLE TO MAKE NEEDS KNOWN. BREATHING EVEN AND UNLABORED, ON NON-REBREATHER MASK AT 10 LPM, NO SOB NOTED. ON TELE MONITORING, READING OF SR W/ HR IN THE MID 60'S-70'S. BRANT MIDLINE PATENT AND INTACT. SAFETY PRECAUTIONS IN PLACE: BED IN LOCKED AND ON LOWEST POSITION, SIDE RAILS UP X2, CALL LIGHT WITHIN REACH. WILL CONTINUE TO MONITOR.
[2020-08-15 07:28] LABS: BASOPHILS % (AUTO) 0.1 % (0.0-2.0); HEMATOCRIT 40 % (33-45); HEMOGLOBIN 13.3 g/dL (11.5-14.8); LYMPHOCYTES # (AUTO) 0.7 /CMM (0.8-4.8); LYMPHOCYTES % (AUTO) 6.2 % (20.0-44.0); MEAN CORPUSCULAR HGB CONC 33 g/dl (31.0-36.0); MEAN CORPUSCULAR VOLUME 90 fL (82-100); MONOCYTES # (AUTO) 0.2 /CMM (0.1-1.30); MONOCYTES % (AUTO) 2.1 % (2.0-12.0); NEUTROPHILS # (AUTO) 9.6 /CMM (1.8-8.9); NEUTROPHILS % (AUTO) 91.6 % (43.0-81.0); PLATELET COUNT (AUTO) 307 /CMM (150-450); RED BLOOD CELL COUNT(AUTO) 4.43 MIL/uL (4.0-5.2); WHITE BLOOD COUNT (AUTO) 10.5 K/uL (4.3-11.0)
[2020-08-15 07:48] LABS: CALCIUM, SERUM 8.8 mg/dL (8.5-10.1); CREATININE 0.8 mg/dL (0.6-1.3); MAGNESIUM 2.4 mg/dL (1.8-2.4); PHOSPHORUS 3.4 mg/dL (2.5-4.9); POTASSIUM 4.1 mmol/L (3.5-5.1)
[2020-08-15] MEDS: PANTOPRAZOLE 40 MG TABLET.DR PO SCH (07:54)
[2020-08-15] MEDS: METOPROLOL SUCCINATE 25 MG TAB.SR.24H PO SCH (08:46)
[2020-08-15] MEDS: ASCORBIC ACID 500 MG TABLET PO SCH (08:47)
[2020-08-15] MEDS: ATORVASTATIN 10 MG TABLET PO SCH (08:49)
[2020-08-15] MEDS: CYANOCOBALAMIN 500 MCG TABLET PO SCH (08:49)
[2020-08-15] MEDS: ZINC SULFATE 220 MG CAPSULE PO SCH (08:49)
[2020-08-15] MEDS: LOSARTAN/HCTZ 50-12.5MG/ 1 EA TABLET PO SCH (08:50)
[2020-08-15] MEDS: DEXAMETHASONE SOD PHOSPHATE 10 MG/ML VIAL IV SCH (08:50)
[2020-08-15 12:41] LABS: C-REACTIVE PROTEIN 3.9 mg/dL (0.0-0.9)
--- NOTE | 2020-08-15 17:00 | NUR ---
RN NOTES REPORTED BY STAFF THAT PATIENT WAS ABLE TO HAVE X1BM TODAY; SPOKE W/ RASHAUN, DTR, AND AWARE WELL AND INFORMED ABOUT PATIENT'S CURRENT CONDITION.
--- NOTE | 2020-08-15 18:52 | NUR ---
HYDROELECTRIC PRODUCTION TECHNICIAN CLOSING NOTES PATIENT IS IN BED RESTING, AWAKE AND VERBALLY RESPONSIVE. A/O X3, ABLE TO MAKE SIMPLE NEEDS KNOWN. BREATHING EVEN AND UNLABORED, CONTINUES ON NON-REBREATHER MASK AT 10 LPM, NO SOB. ON TELE MONITORING, READING OF SR W/ HR IN THE MID 70'S-80'S, NO CARDIAC DISTRESS. BRANT MIDLINE PATENT AND INTACT. ABLE TO USE BEDSIDE COMMODE W/ ASSISTANCE. SAFETY PRECAUTIONS MAINTAINED: BED IN LOCKED AND ON LOWEST POSITION, SIDE RAILS UP X2, CALL LIGHT WITHIN REACH. ENDORSED TO PATIENT SAFETY MANAGER RN FOR DESTINY.
--- NOTE | 2020-08-15 19:44 | NUR ---
RN NOTES PATIENT IS IN BED RESTING, AWAKE AND VERBALLY RESPONSIVE. A/O X3, ABLE TO MAKE SIMPLE NEEDS KNOWN. BREATHING EVEN AND UNLABORED, CONTINUES ON NON-REBREATHER MASK AT 10 LPM, NO SOB. ON TELE MONITORING, READING OF SR W/ HR IN THE MID 70'S-80'S, NO CARDIAC DISTRESS. BRANT MIDLINE PATENT AND INTACT. ABLE TO USE BEDSIDE COMMODE W/ ASSISTANCE. SAFETY PRECAUTIONS MAINTAINED: BED IN LOCKED AND ON LOWEST POSITION, SIDE RAILS UP X2, CALL LIGHT WITHIN REACH. WILL CONTINUE TO MONITOR.
[2020-08-15 20:00] VITALS: BP 114/72
[2020-08-15] MEDS: ENOXAPARIN SODIUM 40 MG/0.4 ML DISP.SYRIN SQ SCH (21:46)
[2020-08-16] VITALS: BP 114/73
[2020-08-16 04:00] VITALS: BP 132/65
--- NOTE | 2020-08-16 06:47 | NUR ---
RN NOTES PATIENT IS IN BED RESTING, AWAKE AND VERBALLY RESPONSIVE. A/O X3, ABLE TO MAKE SIMPLE NEEDS KNOWN. BREATHING EVEN AND UNLABORED, CONTINUES ON NON-REBREATHER MASK AT 10 LPM, NO SOB. ON TELE MONITORING, READING OF SR W/ HR IN THE MID 70'S-80'S, NO CARDIAC DISTRESS. BRANT MIDLINE PATENT AND INTACT. ABLE TO USE BEDSIDE COMMODE W/ ASSISTANCE. SAFETY PRECAUTIONS MAINTAINED: BED IN LOCKED AND ON LOWEST POSITION, SIDE RAILS UP X2, CALL LIGHT WITHIN REACH. WILL ENDORSE CARE TO DAY SHIFT.
[2020-08-16 07:10] LABS: EOSINOPHILS % (AUTO) 0.1 % (0.0-6.0); HEMATOCRIT 39 % (33-45); HEMOGLOBIN 13.3 g/dL (11.5-14.8); LYMPHOCYTES # (AUTO) 0.6 /CMM (0.8-4.8); LYMPHOCYTES % (AUTO) 5.2 % (20.0-44.0); MEAN CORPUSCULAR HGB CONC 34 g/dl (31.0-36.0); MEAN CORPUSCULAR VOLUME 91 fL (82-100); MONOCYTES # (AUTO) 0.2 /CMM (0.1-1.30); MONOCYTES % (AUTO) 2.3 % (2.0-12.0); NEUTROPHILS # (AUTO) 10.1 /CMM (1.8-8.9); NEUTROPHILS % (AUTO) 92.4 % (43.0-81.0); PLATELET COUNT (AUTO) 285 /CMM (150-450); RED BLOOD CELL COUNT(AUTO) 4.33 MIL/uL (4.0-5.2); WHITE BLOOD COUNT (AUTO) 10.9 K/uL (4.3-11.0)
[2020-08-16 07:49] LABS: CALCIUM, SERUM 8.8 mg/dL (8.5-10.1); CREATININE 0.9 mg/dL (0.6-1.3); MAGNESIUM 2.5 mg/dL (1.8-2.4); PHOSPHORUS 3.5 mg/dL (2.5-4.9)
[2020-08-16 08:00] VITALS: BP 100/66
--- NOTE | 2020-08-16 08:00 | NUR ---
RN Opening note Received patient in bed, awaken able to responds all stimuli, Pt does no c/o pain or distress. Skin is warm to touch keep clean/dry intact IV site on right FA g 22, respiratory even and unlabored with oxygen at 10L via NRM O2sat 90-94%. Kept locked bed with elevated HOB for aspiration precaution and ensure airway and lowest bed foe safety. Call light within reach, will continue to monitor.
[2020-08-16] MEDS: LOSARTAN/HCTZ 50-12.5MG/ 1 EA TABLET PO SCH (09:00)
[2020-08-16] MEDS: METOPROLOL SUCCINATE 25 MG TAB.SR.24H PO SCH (09:00)
[2020-08-16] MEDS: ENSURE ENLIVE 237 ML LIQUID (VANILLA) PO SCH ×2 (11:30→17:37)
[2020-08-16 12:00] VITALS: BP 109/71
[2020-08-16] MEDS: ASCORBIC ACID 500 MG TABLET PO SCH (12:27)
[2020-08-16] MEDS: PANTOPRAZOLE 40 MG TABLET.DR PO SCH (12:27)
[2020-08-16] MEDS: CYANOCOBALAMIN 500 MCG TABLET PO SCH (12:27)
[2020-08-16] MEDS: ZINC SULFATE 220 MG CAPSULE PO SCH (12:27)
[2020-08-16] MEDS: ATORVASTATIN 10 MG TABLET PO SCH (12:28)
[2020-08-16 16:00] VITALS: BP 109/68
--- NOTE | 2020-08-16 18:27 | NUR ---
RN closing Patient in bed resting, does no appears distress or discomfort. Skin is warm to touch, keep clean/dry, intact midline on right upper arm. Respiratory even and unlabored with oxygen at 10L via NRM O2sat 90-94%. Kept elevated HOB for ensure air way and aspiration precaution and lowest bed for safety. Call light within reach, will endorse bleach maker
--- NOTE | 2020-08-16 19:20 | NUR ---
RN NOTE Patient Received. Patient is noted in bed, awake, alert and oriented x3. Breathing even and non labored continuing on 10L via NRB with no signs of acute distress or shortness of breath. Patient continues on tele monitor. patient is noted with BRANT midline patent and intact. Safety precautions in place with bed in lowest position and locked. All needs attended to promptly. Call light within reach. Will continue plan of care as ordered.
[2020-08-16 20:00] VITALS: BP 112/72
[2020-08-16] MEDS: ENOXAPARIN SODIUM 40 MG/0.4 ML DISP.SYRIN SQ SCH (21:58)
[2020-08-17] VITALS: BP 104/71
[2020-08-17 04:00] VITALS: BP 104/70
[2020-08-17 06:33] LABS: BASOPHILS % (AUTO) 0.1 % (0.0-2.0); EOSINOPHILS % (AUTO) 1.4 % (0.0-6.0); HEMATOCRIT 38 % (33-45); HEMOGLOBIN 12.9 g/dL (11.5-14.8); LYMPHOCYTES # (AUTO) 0.7 /CMM (0.8-4.8); LYMPHOCYTES % (AUTO) 7.6 % (20.0-44.0); MEAN CORPUSCULAR HGB CONC 34 g/dl (31.0-36.0); MEAN CORPUSCULAR VOLUME 91 fL (82-100); MONOCYTES # (AUTO) 0.2 /CMM (0.1-1.30); MONOCYTES % (AUTO) 1.8 % (2.0-12.0); NEUTROPHILS # (AUTO) 8.4 /CMM (1.8-8.9); NEUTROPHILS % (AUTO) 89.1 % (43.0-81.0); PLATELET COUNT (AUTO) 269 /CMM (150-450); RED BLOOD CELL COUNT(AUTO) 4.19 MIL/uL (4.0-5.2); WHITE BLOOD COUNT (AUTO) 9.5 K/uL (4.3-11.0)
--- NOTE | 2020-08-17 07:08 | NUR ---
COPING MACHINE ASSEMBLER OPENING NOTE RECEIVED PT AWAKE IN BED AT THIS TIME. PT AOX2. NO SOB NOTED, NO S/S OF ANY ACUTE DISTRESS NOTED, NO C/O PAIN AT THIS TIME. PT NOTED ON OXYGEN @10LPM VIA SIMPLE MASK SATURATING IN THE 90s. PT ON EXTERNAL TELE VESSEL LINER READING SR 100. BRANT MIDLINE NOTED, INTACT, PATENT AND FLUSHING WELL. ASPIRATIONS AND SAFETY PRECAUTIONS IN PLACE AND MAINTAINED AT ALL TIMES. BED IN LOWEST LOCKED POSITION, SIDE RAILS UP, HOB ELEVATED, TABLE AND CALL LIGHT WITHIN REACH. WILL CONTINUE TO MONITOR.
[2020-08-17 07:18] LABS: CALCIUM, SERUM 8.6 mg/dL (8.5-10.1); CREATININE 0.8 mg/dL (0.6-1.3); MAGNESIUM 2.2 mg/dL (1.8-2.4)
--- NOTE | 2020-08-17 07:30 | NUR ---
RN NOTE Patient is noted in bed, awake, alert and oriented x3. Breathing even and non labored continuing on 10L via NRB with no signs of acute distress or shortness of breath. Patient continues on tele monitor. patient is noted with BRANT midline patent and intact. All medications administered as per order. Safety precautions in place with bed in lowest position and locked. All needs attended to promptly. Call light within reach. Will endorse to continue plan of care as ordered.
[2020-08-17 08:00] VITALS: BP 114/83
[2020-08-17] MEDS: ATORVASTATIN 10 MG TABLET PO SCH (08:42)
[2020-08-17] MEDS: ENSURE ENLIVE 237 ML LIQUID (VANILLA) PO SCH ×2 (08:42→17:40)
[2020-08-17] MEDS: CYANOCOBALAMIN 500 MCG TABLET PO SCH (08:42)
[2020-08-17] MEDS: METOPROLOL SUCCINATE 25 MG TAB.SR.24H PO SCH (08:44)
[2020-08-17] MEDS: ASCORBIC ACID 500 MG TABLET PO SCH (08:44)
[2020-08-17] MEDS: PANTOPRAZOLE 40 MG TABLET.DR PO SCH (08:45)
[2020-08-17] MEDS: ZINC SULFATE 220 MG CAPSULE PO SCH (08:46)
[2020-08-17] MEDS: LOSARTAN POTASSIUM 50 MG TABLET PO SCH (09:00)
[2020-08-17 12:00] VITALS: BP 99/61
[2020-08-17 16:00] VITALS: BP 97/63
[2020-08-17 16:10] LABS: C-REACTIVE PROTEIN 3.8 mg/dL (0.0-0.9)
--- NOTE | 2020-08-17 18:37 | NUR ---
PT C/O OF CONSTIPATION AT THIS TIME, VS WNL. PER PT REQUEST MOM MILK OF MAGNESIA 30ML PO HS PRN WAS ADMINISTERED AT THIS TIME. WILL CONTINUE TO MONITOR
--- NOTE | 2020-08-17 19:08 | NUR ---
RN CLOSING NOTES PT AWAKE IN BED AT THIS TIME. PT REMAINED STABLE THROUGHOUT SHIFT. ALL CARE, NEED, MEDICATIONS AND TREATMENT ADMINISTERED ANTICIPATED PER ORDER. PT KEPT CLEAN AND DRY. PT ASSISTED TO BED SIDE COMMODE PRN, ASPIRATION AND SAFETY PRECAUTION IN PLACE AND MAINTAINED AT ALL TIMES. BED IN LOWEST LOCKED POSITION, HOB ELEVATED, SIDE RAILS UP X 2, CALL LIGHT AND TABLE WITHIN REACH. ENDORSED TO SITE COORDINATOR NURSE FOR DESTIYN
--- NOTE | 2020-08-17 19:30 | NUR ---
TELE/RN OPENING NOTES RECEIVED PATIENT IN BED RESTING. PATIENT IS ALERT AND ORIENTED X 3. PATIENTS BREATHING IS EVEN AND UNLABORED. PATIENT IN NO SIGNS OF RESPIRATORY DISTRESS. PATIENT STATES NO PAIN AT THIS TIME. TELE READING NSR. PATIENT HAS IV ACCESS ON BRANT MIDLINE FLUSHING WELL. SAFETY MEASURES ARE IN PLACE, BED IS LOCK AND PLACED IN THE LOWEST POSITION, SIDE RAILS UP X 3, CALL LIGHT IS WITHIN REACH. WILL CONTINUE TO MONITOR THROUGH OUT SHIFT.
[2020-08-17 20:00] VITALS: BP 88/53
[2020-08-17] MEDS: ENOXAPARIN SODIUM 40 MG/0.4 ML DISP.SYRIN SQ SCH (21:56)
[2020-08-18] VITALS: BP 92/63
[2020-08-18 04:00] VITALS: BP 92/66
--- NOTE | 2020-08-18 06:40 | NUR ---
TELE/RN CLOSING NOTES PATIENT IN BED SLEEPING, EASY TO AROUSE. PATIENT IS ALERT AND ORIENTED X 3. PATIENTS BREATHING IS EVEN AND UNLABORED. PATIENT IN NO SIGNS OF RESPIRATORY DISTRESS. PATIENT STATES NO PAIN AT THIS TIME. TELE READING NSR. PATIENT HAS IV ACCESS ON BRANT MIDLINE FLUSHING WELL. ALL PATIENT NEEDS HAVE BEEN MET DURING SHIFT. SAFETY MEASURES ARE IN PLACE, BED IS LOCK AND PLACED IN THE LOWEST POSITION, SIDE RAILS UP X 3, CALL LIGHT IS WITHIN REACH. WILL ENDORSE CARE TO DAY SHIFT NURSE.
[2020-08-18 06:51] LABS: BASOPHILS % (AUTO) 0.2 % (0.0-2.0); EOSINOPHILS % (AUTO) 1.4 % (0.0-6.0); HEMATOCRIT 33 % (33-45); HEMOGLOBIN 11.4 g/dL (11.5-14.8); LYMPHOCYTES # (AUTO) 0.7 /CMM (0.8-4.8); LYMPHOCYTES % (AUTO) 7.4 % (20.0-44.0); MEAN CORPUSCULAR HGB CONC 35 g/dl (31.0-36.0); MEAN CORPUSCULAR VOLUME 90 fL (82-100); MONOCYTES # (AUTO) 0.2 /CMM (0.1-1.30); MONOCYTES % (AUTO) 2.4 % (2.0-12.0); NEUTROPHILS % (AUTO) 88.6 % (43.0-81.0); PLATELET COUNT (AUTO) 243 /CMM (150-450); RED BLOOD CELL COUNT(AUTO) 3.67 MIL/uL (4.0-5.2); WHITE BLOOD COUNT (AUTO) 10.2 K/uL (4.3-11.0)
[2020-08-18 07:28] LABS: CALCIUM, SERUM 8.3 mg/dL (8.5-10.1); CREATININE 0.6 mg/dL (0.6-1.3); MAGNESIUM 2.2 mg/dL (1.8-2.4); PHOSPHORUS 2.8 mg/dL (2.5-4.9)
--- NOTE | 2020-08-18 07:53 | NUR ---
PROJECT SYSTEMS ENGINEER NOTE PATIENT IN BED RESTING COMFORTABLY. PATIENT IN NO ACUTE DISTRESS. NO SOB NOTED. PATIENT BREATHING IS EVEN AND UNLABORED. PATIENT HOB IS ELEVATED. SAFETY PRECAUTIONS IN PLACE. PATIENT BED IS LOCKED AND IN LOWEST POSITION. CALL LIGHT WITHIN REACH. WILL CONTINUE TO MONITOR.
[2020-08-18 08:00] VITALS: BP_SYST 100; BP_SYST 153; BP_DIAS 53; BP_DIAS 77
[2020-08-18] MEDS: ZINC SULFATE 220 MG CAPSULE PO SCH (08:44)
[2020-08-18] MEDS: ENSURE ENLIVE 237 ML LIQUID (VANILLA) PO SCH ×2 (08:44→16:12)
[2020-08-18] MEDS: PANTOPRAZOLE 40 MG TABLET.DR PO SCH (08:44)
[2020-08-18] MEDS: CYANOCOBALAMIN 500 MCG TABLET PO SCH (08:44)
[2020-08-18] MEDS: METOPROLOL SUCCINATE 25 MG TAB.SR.24H PO SCH (08:45)
[2020-08-18] MEDS: ASCORBIC ACID 500 MG TABLET PO SCH (08:45)
[2020-08-18] MEDS: ATORVASTATIN 10 MG TABLET PO SCH (08:45)
[2020-08-18] MEDS: LOSARTAN POTASSIUM 50 MG TABLET PO SCH (08:45)
[2020-08-18 16:59] VITALS: BP 99/61
--- NOTE | 2020-08-18 18:52 | NUR ---
CANDY SUPERVISOR NOTE PATIENT IN BED RESTING COMFORTABLY. PATIENT IN NO ACUTE DISTRESS. NO SOB NOTED. PATIENT BREATHING IS EVEN AND UNLABORED. PATIENT HOB IS ELEVATED. PATIENT ON CARDIAC MONITORING READING SINUS TACHYCARDIA HR 109. SAFETY PRECAUTIONS IN PLACE. PATIENT KEPT CLEAN, DRY, AND COMFORTABLE THROUGHOUT MY SHIFT. PATIENT BED IS LOCKED AND IN LOWEST POSITION. CALL LIGHT WITHIN REACH. WILL ENDORSE CARE TO PM SHIFT FOR DESTINY.
--- NOTE | 2020-08-18 19:30 | NUR ---
TELE/RN OPENING NOTES RECEIVED PATIENT IN BED SLEEPING, EASY TO AROUSE. PATIENT IS ALERT AND ORIENTED X 3. PATIENTS BREATHING IS EVEN AND UNLABORED. PATIENT IN NO SIGNS OF RESPIRATORY DISTRESS. PATIENT STATES NO PAIN AT THIS TIME. TELE READING ST. PATIENT HAS IV ACCESS ON BRANT MIDLINE FLUSHING WELL INTACT. SAFETY MEASURES ARE IN PLACE, BED IS LOCK AND PLACED IN THE LOWEST POSITION, SIDE RAILS UP X 2, CALL LIGHT IS WITHIN REACH. WILL CONTINUE TO MONITOR THROUGH OUT SHIFT.
[2020-08-18 20:00] VITALS: BP 102/68
[2020-08-18] MEDS: ENOXAPARIN SODIUM 40 MG/0.4 ML DISP.SYRIN SQ SCH (21:30)
[2020-08-19] VITALS: BP 100/68
[2020-08-19 04:00] VITALS: BP 102/73
--- NOTE | 2020-08-19 06:30 | NUR ---
TELE/RN CLOSING NOTES PATIENT IN BED SLEEPING, EASY TO AROUSE. PATIENT IS ALERT AND ORIENTED X 3. PATIENTS BREATHING IS EVEN AND UNLABORED. PATIENT IN NO SIGNS OF RESPIRATORY DISTRESS. PATIENT STATES NO PAIN AT THIS TIME. TELE READING SR. PATIENT HAS IV ACCESS ON BRANT MIDLINE FLUSHING WELL INTACT. ALL PATIENT NEEDS HAVE BEEN MET DURING SHIFT. SAFETY MEASURES ARE IN PLACE, BED IS LOCK AND PLACED IN THE LOWEST POSITION, SIDE RAILS UP X 2, CALL LIGHT IS WITHIN REACH. WILL ENDORSE CARE TO DAY SHIFT NURSE.
--- NOTE | 2020-08-19 07:38 | NUR ---
BUCKLE SEWER MACHINE NOTE PATIENT IN BED RESTING COMFORTABLY. PATIENT IN NO ACUTE DISTRESS. NO SOB NOTED. PATIENT BREATHING IS EVEN AND UNLABORED. PATIENT HOB IS ELEVATED. SAFETY PRECAUTIONS IN PLACE. PATIENT BED IS LOCKED AND IN LOWEST POSITION. CALL LIGHT WITHIN REACH. WILL CONTINUE TO MONITOR.
[2020-08-19 08:00] VITALS: BP 97/65
[2020-08-19] MEDS: METOPROLOL SUCCINATE 25 MG TAB.SR.24H PO SCH (08:41)
[2020-08-19] MEDS: LOSARTAN POTASSIUM 50 MG TABLET PO SCH (08:41)
[2020-08-19] MEDS: ASCORBIC ACID 500 MG TABLET PO SCH (08:47)
[2020-08-19] MEDS: CYANOCOBALAMIN 500 MCG TABLET PO SCH (08:47)
[2020-08-19] MEDS: ATORVASTATIN 10 MG TABLET PO SCH (08:47)
[2020-08-19] MEDS: PANTOPRAZOLE 40 MG TABLET.DR PO SCH (08:47)
[2020-08-19] MEDS: ZINC SULFATE 220 MG CAPSULE PO SCH (08:47)
[2020-08-19] MEDS: ENSURE ENLIVE 237 ML LIQUID (VANILLA) PO SCH ×2 (08:52→16:43)
[2020-08-19 12:00] VITALS: BP 104/64
[2020-08-19 16:00] VITALS: BP 91/60
--- NOTE | 2020-08-19 19:02 | NUR ---
ELDERLY SITTER NOTE PATIENT IN BED RESTING COMFORTABLY. PATIENT IN NO ACUTE DISTRESS. NO SOB NOTED. PATIENT BREATHING IS EVEN AND UNLABORED. PATIENT HOB IS ELEVATED. PATIENT ON CARDIAC MONITORING READING SINUS TACHYCARDIA HR 111. SAFETY PRECAUTIONS IN PLACE. PATIENT KEPT CLEAN, DRY, AND COMFORTABLE THROUGHOUT MY SHIFT. PATIENT BED IS LOCKED AND IN LOWEST POSITION. CALL LIGHT WITHIN REACH. WILL ENDORSE CARE TO PM SHIFT FOR DESTINY.
[2020-08-19 20:19] VITALS: BP 118/77
[2020-08-19] MEDS: ENOXAPARIN SODIUM 40 MG/0.4 ML DISP.SYRIN SQ SCH (22:19)
[2020-08-20 00:47] VITALS: BP 118/70
[2020-08-20 04:27] VITALS: BP 107/78
--- NOTE | 2020-08-20 07:36 | NUR ---
INDUSTRIAL AUTOMATION SPECIALIST NOTE PATIENT IN BED RESTING PATIENT IN NO ACUTE DISTRESS. PT DENIES SOB PATIENT BREATHING IS EVEN AND UNLABORED. PATIENT HOB IS ELEVATED. PATIENT ON CARDIAC MONITORING. SAFETY PRECAUTIONS IN PLACE. PT ON 8 LITERS SIMPLE FACE MASEK . PT KEEPS DESATURATING TO 80'S AFTER ACTIVITY RESTING IN BED PT IS 94% WILL ENDORSE TO AM FOR DESTINY.
[2020-08-20 08:00] VITALS: BP 107/76
[2020-08-20] MEDS: CYANOCOBALAMIN 500 MCG TABLET PO SCH (08:33)
[2020-08-20] MEDS: ZINC SULFATE 220 MG CAPSULE PO SCH (08:33)
[2020-08-20] MEDS: LOSARTAN POTASSIUM 50 MG TABLET PO SCH (08:34)
[2020-08-20] MEDS: ASCORBIC ACID 500 MG TABLET PO SCH (08:34)
[2020-08-20] MEDS: METOPROLOL SUCCINATE 25 MG TAB.SR.24H PO SCH (08:34)
[2020-08-20] MEDS: ATORVASTATIN 10 MG TABLET PO SCH (08:34)
[2020-08-20] MEDS: PANTOPRAZOLE 40 MG TABLET.DR PO SCH (08:35)
[2020-08-20] MEDS: ENSURE ENLIVE 237 ML LIQUID (VANILLA) PO SCH ×2 (08:36→17:12)
--- NOTE | 2020-08-20 09:00 | NUR ---
TELE/RN NOTES BP 107/76 P 110 COZAAR 50 MG 1 TAB P.O. AND METOPROLOL 25 MG 1 TAB P.O. WAS WITH HOLD. WILL CONTINUE TO MONITOR.
[2020-08-20 12:00] VITALS: BP 115/77
--- NOTE | 2020-08-20 15:35 | NUR ---
TELE/RN NOTES PATIENT IS ON 6L OXYGEN VIA NASAL CANNULA TOLERATING WELL SATURATION 98%. PATIENT IN NO APPARENT RESPIRATORY DISTRESS NOTED. WILL CONTINUE TO MONITOR.
[2020-08-20 16:00] VITALS: BP 114/76
--- NOTE | 2020-08-20 18:54 | NUR ---
TELE/RN OPENING NOTE PATIENT ON BED AWAKE, ALERT AND ORIENTED X 3. PATIENT IS ON 6L OXYGEN VIA NASAL CANNULA SATURATION 97%. PATIENT IN NO APPARENT RESPIRATORY DISTRESS NOTED. NO COMPLAINED OF PAIN NOTED AT THIS TIME. TELE MONITOR READING SINUS TACHY 116 BPM. SEEN AND EXAMINED BY MD WITH ORDERS MADE AND CARRIED OUT. ALL DUE MEDICATIONS WAS GIVEN. SAFETY PRECAUTIONS WAS IN PLACED. BED IN LOWEST POSITION AND LOCKED. SIDE RAILS UP X2 AND LOCKED. CALL LIGHT WITHIN REACH. WILL ENDORSED TO HOLLOW TILE PARTITION ERECTOR FOR DESTINY.
--- NOTE | 2020-08-20 19:40 | NUR ---
FURNITURE CLEANER OPENING NOTE, PATIENT IN BED ASLEEP BUT AROUSES TO VERBAL STIMULI, , ALERT AND ORIENTED X 3, ABLE TO VERBALIZED NEEDS AND CONCERNS, . ON 6L OXYGEN VIA NASAL CANNULA SATURATION 94% AT THIS TIME, NO SOB/ACUTE DISTRESS NOTED, SINUS TACHY 110S BPM AT THIS TIME, SAFETY PRECAUTIONS WAS IN PLACED, BED LOCKED AND LOWEST POSITION, SIDE RAILS UP X2, CALL LIGHT WITHIN REACH, WILLCONTINUE TO MONITOR CLOSELY.
[2020-08-20 20:00] VITALS: BP_SYST 115; BP_SYST 135; BP_DIAS 80; BP_DIAS 81
[2020-08-20] MEDS: ENOXAPARIN SODIUM 40 MG/0.4 ML DISP.SYRIN SQ SCH (20:07)
[2020-08-21] VITALS: BP 126/82
[2020-08-21 04:00] VITALS: BP 121/75
--- NOTE | 2020-08-21 06:43 | NUR ---
MICROSOFT ARCHITECT CLOSING NOTE, PATIENT IN BED AWAKE, ALERT AND ORIENTED X 3, ABLE TO VERBALIZED NEEDS AND CONCERNS, BACK ON 6L OXYGEN VIA NASAL CANNULA SATURATION >94% AT THIS TIME, NO SOB/ACUTE DISTRESS NOTED, WITH EPISODE OF DESATURATION PLACED HER ION NRM AROUND 0430, AFTER 30MIN, PLACED BACK TO SIMPLE MASK 6LPM, OTHERWISE NO SIGNIFICANT CHANGE IN CONDITION DURING THE NIGHT, SAFETY PRECAUTIONS IN PLACED, BED LOCKED AND LOWEST POSITION, SIDE RAILS UP X2, CALL LIGHT WITHIN REACH, WILL ENDORSE CONTINUITY OF CARE TO ONCOMING NURSE.
--- NOTE | 2020-08-21 07:30 | NUR ---
COUNSELLING PSYCHOLOGIST OPENING NOTE RECEIVED PATIENT RESTING IN BED. AWAKE, ALERT AND ORIENTED X 3. ABLE TO MAKE NEEDS KNOWN. NO COMPLAINTS OF PAIN THIS MORNING. CONTINUES ON SIMPLE MASK 10L WITH O2 SATS BETWEEN 93-95%. NO SIGNS OR SYMPTOMS OF RESPIRATORY DISTRESS NOTED. IV ACCESS TO BRANT INTACT AND PATENT. CALL LIGHT WITHIN REACH. ASPIRATION, FALL AND SAFETY PRECAUTIONS MAINTAINED. WILL CONTINUE TO MONITOR.
[2020-08-21 08:00] VITALS: BP 157/80
[2020-08-21] MEDS: PANTOPRAZOLE 40 MG TABLET.DR PO SCH (08:02)
[2020-08-21] MEDS: ZINC SULFATE 220 MG CAPSULE PO SCH (08:02)
[2020-08-21] MEDS: CYANOCOBALAMIN 500 MCG TABLET PO SCH (08:03)
[2020-08-21] MEDS: ATORVASTATIN 10 MG TABLET PO SCH (08:03)
[2020-08-21] MEDS: ASCORBIC ACID 500 MG TABLET PO SCH (08:03)
[2020-08-21] MEDS: METOPROLOL SUCCINATE 25 MG TAB.SR.24H PO SCH (08:04)
[2020-08-21] MEDS: LOSARTAN POTASSIUM 50 MG TABLET PO SCH (08:04)
[2020-08-21] MEDS: ENSURE ENLIVE 237 ML LIQUID (VANILLA) PO SCH ×2 (08:15→17:37)
[2020-08-21] MEDS ORDERED: LACTULOSE 10 G/15 ML UDC (PYXIS) PO ONE (08:45)
[2020-08-21] MEDS: DOCUSATE SODIUM 100 MG CAPSULE PO SCH (09:05)
[2020-08-21 09:19] LABS: ABG BASE EXCESS 3.6 mmol/L; ABG OXYGEN SATURATION 96.1 % (92.0-98.5); ABG PCO2 41.4 mmHg (35.0-45.0); ABG PH 7.448 (7.350-7.450); ABG PO2 79.4 mmHg (75.0-100.0); AaDO2 230.5 mmHg; COHb 0.8 % (0.5-1.5); MetHb 0.3 % (0.0-1.5); SITE, ABG Left Radial; VENT MODE, BG 6 LMP NC
[2020-08-21 16:00] VITALS: BP 105/68
--- NOTE | 2020-08-21 18:28 | NUR ---
TIN CAN FEEDER CLOSING NOTE PATIENT CURRENTLY RESTING IN BED. AWAKE, ALERT AND ORIENTED X 3. ABLE TO MAKE NEEDS KNOWN. NO COMPLAINTS OF PAIN THIS SHIFT. PATIENT ABLE TO TRANSFER TO COMMODE WITH ASSIST. C/O CONSTIPATION WITH NEW ORDERS FOR BOWEL MEDS. PATIENT HAD LARGE BM THIS SHIFT. WHEN PATIENT TRANSFERS SHE DESATURATES. SHE CURRENTLY HAS A SIMPLE MASK AT 10L DUE TO USING THE COMMODE. O2 SATS AT THIS TIME 87-89% WITH O2 SATS INCREASING. VS: BP 105/68 HR 98 RR 19 T 98.0 O2 SAT 88%. CALL LIGHT WITHIN REACH. ASPIRATION, FALL AND SAFETY PRECAUTIONS MAINTAINED. WILL ENDORSE CONTINUITY OF CARE TO ONCOMING SHIFT.
--- NOTE | 2020-08-21 19:00 | NUR ---
RN OPENING NOTE RECEIVED PATIENT IN BED RESTING ALERT ORIENTED X3 VERBALLY RESPONSIVE ABLE TO MAKE NEEDS KNOWN,ON 12L NON REBREATHER MASK,O2:92% IV SITE IS ON RIGHT UPPER ARM MID LINE,INTACT PATENT,CONTINENT TO BOWEL/BLADDER,AMBULATORY WITH ASSIST,SAFETY MEASURE IMPLEMENT,BED IN LOW POSITION AND LOCKED,CALL LIGHT WITHIN REACH,BED ALARM IS ON,CONTINUE TO MONITOR.
[2020-08-21 19:53] VITALS: BP 131/73
[2020-08-21 20:00] VITALS: BP 131/73
[2020-08-21] MEDS: ENOXAPARIN SODIUM 40 MG/0.4 ML DISP.SYRIN SQ SCH (20:25)
[2020-08-22] VITALS (8 sets, daily range): BP systolic 103–143; BP diastolic 66–166
--- NOTE | 2020-08-22 06:34 | NUR ---
RN CLOSING NOTE PATIENT REMAINS ON ALERT ORIENTED X3 VERBALLY RESPONSIVE ABLE TO MAKE NEEDS KNOWN,ON TELE MONITORING,COVID POSITIVE, MONITORING FOR DROPLET/CONTACT ISOLATION,ON 12L NON REBREATHER MASK O2:96% IV SITE IS ON RIGHT UPPER ARM MIDLINE INTACT PATENT,CONTINENT TO BOWEL/BLADDER ALL DUE MEDS GIVEN MD ORDERED,KEPT CLEAN AND DRY ALL THE TIME,KEPT COMFORTABLE,KEPT CALL LIGHT WITHIN REACH,ENDORSE NEXT COMING SHIFT FOR CONTINUATION OF CARE.
--- NOTE | 2020-08-22 07:25 | NUR ---
DIRECTOR OF RESTAURANTS NOTES PATIENT RECEIVED IN BED RESTING COMFORTABLY. ALERT AND ORIENTED X 3. ON 12 LITERS NON-REBREATHER MASK. NO RESPIRATORY DISTRESS PRESENT AT THIS TIME. ON TYPER SINUS TACH 105. IV ACCESS INTACT AND PATENT ON BRANT MIDLINE. SKIN WARM AND DRY TO TOUCH. PATIENT DENIES ANY PAIN OR DISCOMFORT AT THIS TIME. SAFETY PRECAUTIONS IMPLEMENTED WITH BED LOCKED, BILATERAL SIDE RAILS UP, BED ALARM ON, AND CALL LIGHT WITHIN EASY REACH. WILL CONTINUE TO MONITOR PATIENT.
[2020-08-22] MEDS: ENSURE ENLIVE 237 ML LIQUID (VANILLA) PO SCH ×2 (08:41→16:13)
[2020-08-22] MEDS: ASCORBIC ACID 500 MG TABLET PO SCH (08:41)
[2020-08-22] MEDS: PANTOPRAZOLE 40 MG TABLET.DR PO SCH (08:41)
[2020-08-22] MEDS: ZINC SULFATE 220 MG CAPSULE PO SCH (08:41)
[2020-08-22] MEDS: DOCUSATE SODIUM 100 MG CAPSULE PO SCH (08:41)
[2020-08-22] MEDS: CYANOCOBALAMIN 500 MCG TABLET PO SCH (08:42)
[2020-08-22] MEDS: LOSARTAN POTASSIUM 50 MG TABLET PO SCH (08:42)
[2020-08-22] MEDS: ATORVASTATIN 10 MG TABLET PO SCH (08:42)
[2020-08-22] MEDS: METOPROLOL SUCCINATE 25 MG TAB.SR.24H PO SCH (08:42)
[2020-08-22 17:43] LABS: BASOPHILS # (AUTO) 0.1 /CMM (0.0-0.2); BASOPHILS % (AUTO) 0.6 % (0.0-2.0); EOSINOPHILS % (AUTO) 1.7 % (0.0-6.0); HEMATOCRIT 32 % (33-45); HEMOGLOBIN 10.9 g/dL (11.5-14.8); LYMPHOCYTES # (AUTO) 0.6 /CMM (0.8-4.8); LYMPHOCYTES % (AUTO) 5.1 % (20.0-44.0); MEAN CORPUSCULAR HGB CONC 34 g/dl (31.0-36.0); MEAN CORPUSCULAR VOLUME 93 fL (82-100); MONOCYTES # (AUTO) 0.4 /CMM (0.1-1.30); MONOCYTES % (AUTO) 3.8 % (2.0-12.0); NEUTROPHILS % (AUTO) 88.8 % (43.0-81.0); PLATELET COUNT (AUTO) 308 /CMM (150-450); RED BLOOD CELL COUNT(AUTO) 3.46 MIL/uL (4.0-5.2); WHITE BLOOD COUNT (AUTO) 11.3 K/uL (4.3-11.0)
[2020-08-22 17:53] LABS: D-DIMER 1.53 mg/L(FEU (0.17-0.50)
[2020-08-22 18:00] LABS: BILIRUBIN,TOTAL 0.4 mg/dL (0.2-1.0); CREATININE 0.6 mg/dL (0.6-1.3); TOTAL PROTEIN, SERUM 6.3 g/dL (6.4-8.2)
[2020-08-22 18:12] LABS: POTASSIUM 6.2 mmol/L (3.5-5.1)
--- NOTE | 2020-08-22 18:41 | NUR ---
FIBROUS WALLBOARD INSPECTOR NOTES PATIENT IN BED RESTING COMFORTABLY. ALERT AND ORIENTED X 3. ON 15 LITERS NON-REBREATHER MASK AT THIS TIME. NO RESPIRATORY DISTRESS PRESENT AT THIS TIME WITH EVEN NON-LABORED BREATHING. ON CABLE MAKER SINUS TACH 105. INFORMED HOSPITALIST SANDOR TOPETE DNP OF POTASSIUM LEVEL OF 6.2, NO NEW ORDERS AT THIS TIME. IV ACCESS INTACT AND PATENT ON BRANT MIDLINE. SKIN KEPT CLEAN, WARM AND DRY. MET ALL OF PATIENT'S MEEDS. PATIENT DENIES ANY PAIN OR DISCOMFORT AT THIS TIME. SAFETY PRECAUTIONS IMPLEMENTED WITH BED LOCKED, BILATERAL SIDE RAILS UP, BED ALARM ON, AND CALL LIGHT WITHIN EASY REACH. WILL ENDORSE PLAN OF CARE TO UPCOMING RN.
[2020-08-22] MEDS ORDERED: INSULIN REGULAR, HUMAN 100 UNIT/ML 3 ML VIAL IV ONE (19:00)
[2020-08-22] MEDS ORDERED: DEXTROSE 50%-WATER 50 ML DISP.SYRIN IVP ONE (19:00)
--- NOTE | 2020-08-22 19:40 | NUR ---
MEDICAL DEVICE: CONTINUITY OF CARE Assisted patient to BSC, SOB with exertion. On NRB mask. Denies pain. Contact/Droplet precaution maintained.
--- NOTE | 2020-08-22 21:22 | NUR ---
SPECIAL INSPECTOR: ELEVATED POTASSIUM Potassium 6.2. Given Regular Insulin 10units and D50% as ordered.
[2020-08-22] MEDS: ENOXAPARIN SODIUM 40 MG/0.4 ML DISP.SYRIN SQ SCH (21:26)
[2020-08-22 21:28] LABS: CALCIUM, SERUM 8.6 mg/dL (8.5-10.1); CREATININE 0.7 mg/dL (0.6-1.3); POTASSIUM 5.3 mmol/L (3.5-5.1)
--- NOTE | 2020-08-22 21:28 | NUR ---
PLASTIC MOLDING OPERATOR: ANTICOAGULANT H/H 10. PLT 308 No bleeding. Lovenox injection given co-signed by CHARO Garcia.
[2020-08-23] VITALS: BP 140/85
[2020-08-23 00:20] VITALS: BP 140/85
[2020-08-23 04:00] VITALS: BP 101/68
--- NOTE | 2020-08-23 06:20 | NUR ---
AGENT BROKER: END OF SHIFT REPORT Patient is A/O x2. Sinus Tach in the Tele monitor. Oxygen support with 10L Non rebreather mask, SOB with exertion improved with rest. Afebrile, denies pain. Contact/Droplet precaution maintained. K improving after Regular insulin and D50% x1. Will endorse to oncoming RN.
[2020-08-23 07:33] LABS: BASOPHILS # (AUTO) 0.1 /CMM (0.0-0.2); BASOPHILS % (AUTO) 0.6 % (0.0-2.0); EOSINOPHILS % (AUTO) 0.7 % (0.0-6.0); HEMATOCRIT 32 % (33-45); HEMOGLOBIN 10.7 g/dL (11.5-14.8); LYMPHOCYTES % (AUTO) 7.6 % (20.0-44.0); MEAN CORPUSCULAR HGB CONC 33 g/dl (31.0-36.0); MEAN CORPUSCULAR VOLUME 93 fL (82-100); MONOCYTES # (AUTO) 0.5 /CMM (0.1-1.30); MONOCYTES % (AUTO) 3.9 % (2.0-12.0); NEUTROPHILS # (AUTO) 11.8 /CMM (1.8-8.9); NEUTROPHILS % (AUTO) 87.2 % (43.0-81.0); PLATELET COUNT (AUTO) 320 /CMM (150-450); RED BLOOD CELL COUNT(AUTO) 3.43 MIL/uL (4.0-5.2); WHITE BLOOD COUNT (AUTO) 13.5 K/uL (4.3-11.0)
--- NOTE | 2020-08-23 07:35 | NUR ---
RN OPENING NOTE THE PATIENT IS RECEIVED IN BED. PATIENT IS ALERT AND ORIENTED X2. ABLE TO MAKE NEEDS KNOWN VERBALLY. DENIES PAIN. PATIENT IS RECEIVING OXYGEN AT 15L/MIN VIA NON-REBREATHER MASK AND DENIES SOB. RESPIRATION REGULAR AND UNLABORED. PATIENT IN NO APPARENT DISTRESS. BRANT G18 MIDLINE PATENT AND SALINE LOCKED. BED LOW AND LOCKED. SIDE RAILS UP X3. CALL LIGHT WIHTIN REACH. WILL CONTINUE TO MONITOR.
[2020-08-23 08:00] VITALS: BP 90/66
[2020-08-23] MEDS: ENSURE ENLIVE 237 ML LIQUID (VANILLA) PO SCH ×2 (08:00→16:20)
[2020-08-23 08:10] LABS: CALCIUM, SERUM 8.9 mg/dL (8.5-10.1); CREATININE 0.7 mg/dL (0.6-1.3); MAGNESIUM 1.8 mg/dL (1.8-2.4); PHOSPHORUS 4.4 mg/dL (2.5-4.9); POTASSIUM 5.1 mmol/L (3.5-5.1)
[2020-08-23] MEDS: ATORVASTATIN 10 MG TABLET PO SCH (08:32)
[2020-08-23] MEDS: ZINC SULFATE 220 MG CAPSULE PO SCH (08:32)
[2020-08-23] MEDS: PANTOPRAZOLE 40 MG TABLET.DR PO SCH (08:32)
[2020-08-23] MEDS: ASCORBIC ACID 500 MG TABLET PO SCH (08:32)
[2020-08-23] MEDS: CYANOCOBALAMIN 500 MCG TABLET PO SCH (08:32)
[2020-08-23] MEDS: DOCUSATE SODIUM 100 MG CAPSULE PO SCH (08:32)
[2020-08-23] MEDS: LOSARTAN POTASSIUM 50 MG TABLET PO SCH (09:00)
[2020-08-23] MEDS: METOPROLOL SUCCINATE 25 MG TAB.SR.24H PO SCH (09:00)
--- NOTE | 2020-08-23 09:47 | NUR ---
RN NOTE WITH ONE PERSON ASSIST THE PATIENT ABLE TO TRANSFER FROM BED TO COMMODE.
[2020-08-23] MEDS: DEXAMETHASONE SOD PHOSPHATE 10 MG/ML VIAL IV SCH (13:15)
[2020-08-23] MEDS: ENOXAPARIN SODIUM 40 MG/0.4 ML DISP.SYRIN SQ SCH ×2 (13:16→21:45)
[2020-08-23] MEDS: LEVOFLOXACIN 500 MG /D5W 100ML 500 MG in PREMIX 1 EA IV SCH (13:16)
[2020-08-23 16:00] VITALS: BP 131/72
--- NOTE | 2020-08-23 17:13 | NUR ---
RN NOTE DR HUGHES IS MADE AWARE THAT THE PATIENT`S OXYGEN SATURATION LEVEL IS AT 89% WITH OXYGEN DELIVERING AT 15L/MIN VIA NON-REBREATHER MASK. NO NEW ORDERS PER DR HUGHES. WILL CONTINUE TO MONITOR.
--- NOTE | 2020-08-23 18:38 | NUR ---
RN NOTE THE PATIENT ALERT AND ORIENTED X3 WITH EPISODES. PATIENT ON 15L/MIN OXYGEN VIA NONO-REBREATHER MASK AND SATURATION IS AT 90%. BRANT G 18 MIDLINE PATENT AND SALINE LOCKED. BED LOW AND LOCKED. SIDE RAILS UP X3. CALL LIGHT WITHIN REACH. WILL ENDORSE TO BAGGAGE HANDLER.
--- NOTE | 2020-08-23 19:30 | NUR ---
CHILD CARE SPECIALIST OPENING NOTE RECEIVED PATIENT IN BED. A/OX2-3. ON OXYGEN 15L NON REBREATHER. RESPIRATIONS ARE EVEN SLIGHTLY LABORED. PATIENT DOES FEEL SOB. NO C/O PAIN AT THIS TIME. EXTERNAL TELE MONITOR READS SINUS TACH HR 115. IN NO APPARENT DISTRESS. IV ACCESS IN BRANT MIDLINE PATENT AND SALINE LOCKED. BED IS LOW AND LOCKED. HOB ELEVATED IN SEMI FOWLERS, SIDE RIALS UP X2. CALL LIGHT WITHIN REACH. WILL CONTINUE TO MONITOR THROUGHOUT SHIFT.
[2020-08-23 20:00] VITALS: BP 121/78
--- NOTE | 2020-08-23 21:00 | NUR ---
DATA ANALYTICS ANALYST NOTE PATIENTS NEICE CALLED, UPDATED HER ABOUT PATIENT.
[2020-08-24] VITALS: BP 108/70
[2020-08-24 04:00] VITALS: BP 108/73
--- NOTE | 2020-08-24 06:28 | NUR ---
CAB DRIVER CLOSING NOTE PATIENT RESTING IN BED. A/OX2-3. REMAINS ON OXYGEN 15L NON REBREATHER. NO RESP DISTRESS. C/O PAIN DURING SHIFT BUT DOES NOT WANT ANY PAIN MEDICATION. TELE MONITOR READS SINUS TACH. NO DISTRESS. IV ACCESS MAINTAINED IN BRANT MIDLINE. BED REMAINS LOW AND LOCKED. HOB ELEVATED IN SEMI FOWLERS, SIDE RIALS UP X2. CALL LIGHT WITHIN REACH. WILL ENDORSE TO NEXT SHIFT
[2020-08-24 06:38] LABS: BASOPHILS % (AUTO) 0.1 % (0.0-2.0); HEMATOCRIT 31 % (33-45); HEMOGLOBIN 10.6 g/dL (11.5-14.8); LYMPHOCYTES # (AUTO) 0.6 /CMM (0.8-4.8); LYMPHOCYTES % (AUTO) 6.2 % (20.0-44.0); MEAN CORPUSCULAR HGB CONC 34 g/dl (31.0-36.0); MEAN CORPUSCULAR VOLUME 93 fL (82-100); MONOCYTES # (AUTO) 0.2 /CMM (0.1-1.30); MONOCYTES % (AUTO) 2.6 % (2.0-12.0); NEUTROPHILS # (AUTO) 8.6 /CMM (1.8-8.9); NEUTROPHILS % (AUTO) 91.1 % (43.0-81.0); PLATELET COUNT (AUTO) 301 /CMM (150-450); RED BLOOD CELL COUNT(AUTO) 3.38 MIL/uL (4.0-5.2); WHITE BLOOD COUNT (AUTO) 9.4 K/uL (4.3-11.0)
[2020-08-24 07:04] LABS: CALCIUM, SERUM 8.9 mg/dL (8.5-10.1); CREATININE 0.6 mg/dL (0.6-1.3); MAGNESIUM 2.2 mg/dL (1.8-2.4); PHOSPHORUS 4.4 mg/dL (2.5-4.9); POTASSIUM 4.9 mmol/L (3.5-5.1)
[2020-08-24] MEDS: ENSURE ENLIVE 237 ML LIQUID (VANILLA) PO SCH ×2 (08:00→16:25)
[2020-08-24] MEDS: PANTOPRAZOLE 40 MG TABLET.DR PO SCH (08:12)
[2020-08-24] MEDS: DOCUSATE SODIUM 100 MG CAPSULE PO SCH (08:13)
[2020-08-24] MEDS: METOPROLOL SUCCINATE 25 MG TAB.SR.24H PO SCH (08:13)
[2020-08-24] MEDS: ASCORBIC ACID 500 MG TABLET PO SCH (08:13)
[2020-08-24] MEDS: ATORVASTATIN 10 MG TABLET PO SCH (08:13)
[2020-08-24] MEDS: CYANOCOBALAMIN 500 MCG TABLET PO SCH (08:13)
[2020-08-24] MEDS: ZINC SULFATE 220 MG CAPSULE PO SCH (08:13)
[2020-08-24] MEDS: LOSARTAN POTASSIUM 50 MG TABLET PO SCH (08:14)
[2020-08-24 08:28] VITALS: BP 136/72
[2020-08-24] MEDS: ENOXAPARIN SODIUM 40 MG/0.4 ML DISP.SYRIN SQ SCH ×2 (08:33→20:25)
[2020-08-24] MEDS: DEXAMETHASONE SOD PHOSPHATE 10 MG/ML VIAL IV SCH (08:34)
--- NOTE | 2020-08-24 10:30 | NUR ---
tele industrial hygiene engineer: notes p.t. at bedside for tx, pt gets sob on exertion, assisted pt back to bed by p.t. remains on non-rebreather mask at 15l/min. instructed to call for assistance. will continue to monitor.
[2020-08-24] MEDS: LEVOFLOXACIN 500 MG /D5W 100ML 500 MG in PREMIX 1 EA IV SCH (12:10)
[2020-08-24 12:37] VITALS: BP 112/72
--- NOTE | 2020-08-24 13:00 | NUR ---
tele hot dipper: pulmo f/u seen by dr simpson at this time.
--- NOTE | 2020-08-24 13:45 | NUR ---
tele hand drawer in helper: md visit seen and examined by dr. gonzalez at this time. will continue to monitor.
[2020-08-24 15:58] VITALS: BP 140/73
--- NOTE | 2020-08-24 19:00 | NUR ---
tele upper lining cementer: notes report given to iain muhammad) for continuity of care.
[2020-08-24 20:00] VITALS: BP 109/69
[2020-08-25] VITALS: BP 122/71
[2020-08-25 04:00] VITALS: BP 118/68
--- NOTE | 2020-08-25 06:31 | NUR ---
MS2/RN PATIENT IS AWAKE, COMFORTABLE, NO DISTRESS NOTED, GOOD SLEEP NOTED THE WHOLE SHIFT, ALL NEEDS ATTENDED AT THIS TIME, WILL CONTINUE TO MONITOR.
--- NOTE | 2020-08-25 07:42 | NUR ---
TYPESETTING SUPERVISOR OPENING NOTE RECEIVED PATIENT SITTING UP IN BED. AWAKE, ALERT AND ORIENTED X 3. ABLE TO MAKE NEEDS KNOWN. NO COMPLAINTS OF PAIN THIS MORNING. CONTINUES ON O2 VIA NON-REBREATHER MASK @ 15L WITH NO SIGNS OR SYMPTOMS OF RESPIRATORY DISTRESS NOTED. IV ACCESS TO RIGHT UPPER ARM IS INTACT AND PATENT. CALL LIGHT WITHIN REACH. ASPIRATION, FALL AND SAFETY PRECAUTIONS MAINTAINED. WILL CONTINUE TO MONITOR.
[2020-08-25 08:00] VITALS: BP 114/89
[2020-08-25] MEDS: CYANOCOBALAMIN 500 MCG TABLET PO SCH (08:21)
[2020-08-25] MEDS: PANTOPRAZOLE 40 MG TABLET.DR PO SCH (08:22)
[2020-08-25] MEDS: LOSARTAN POTASSIUM 50 MG TABLET PO SCH (08:22)
[2020-08-25] MEDS: ATORVASTATIN 10 MG TABLET PO SCH (08:22)
[2020-08-25] MEDS: DOCUSATE SODIUM 100 MG CAPSULE PO SCH (08:22)
[2020-08-25] MEDS: DEXAMETHASONE SOD PHOSPHATE 10 MG/ML VIAL IV SCH (08:23)
[2020-08-25] MEDS: ASCORBIC ACID 500 MG TABLET PO SCH (08:23)
[2020-08-25] MEDS: METOPROLOL SUCCINATE 25 MG TAB.SR.24H PO SCH (08:23)
[2020-08-25] MEDS: ZINC SULFATE 220 MG CAPSULE PO SCH (08:23)
[2020-08-25] MEDS: ENOXAPARIN SODIUM 40 MG/0.4 ML DISP.SYRIN SQ SCH ×2 (08:25→21:15)
[2020-08-25] MEDS: ENSURE ENLIVE 237 ML LIQUID (VANILLA) PO SCH ×2 (08:27→16:45)
--- NOTE | 2020-08-25 09:50 | NUR ---
MANAGER INTERMEDIATE NOTES PT SEEN BY DR. MARI AA MD INFORMED OF LATEST CHEST XR RESULT, PER MD IF PT CONTINUES TO DESATURATE, MAY BE PLACED ON HIGH FLOW O2, PT CURRENTLY SATTING AT 96% ON 15L NRB MASK, PT ALSO SEEN BY DR. HUGHES.
[2020-08-25] MEDS: LEVOFLOXACIN 500 MG /D5W 100ML 500 MG in PREMIX 1 EA IV SCH (13:07)
--- NOTE | 2020-08-25 14:19 | NUR ---
DANCE HALL HOST/HOSTESS NOTES RECEIVED NEW ORDER FOR ACTEMRA IV, PT AND FAMILY INFORMED AND AGREED.
[2020-08-25] MEDS ORDERED: ACETAMINOPHEN 325 MG TABLET PO ONE (16:00)
[2020-08-25] MEDS ORDERED: TOCILIZUMAB 400 MG in IV NS 0.9% 80 ML IV ONE (16:00)
[2020-08-25] MEDS ORDERED: diphenhydrAMINE HCL 50 MG/ML VIAL IV ONE (16:00)
[2020-08-25 16:10] VITALS: BP 107/70
--- NOTE | 2020-08-25 18:39 | NUR ---
NATURAL GAS FIELD PROCESSING SUPERVISOR CLOSING NOTE PATIENT IS CURRENTLY RESTING IN BED. ASLEEP, ALERT AND ORIENTED X 3. ABLE TO MAKE NEEDS KNOWN. NO COMPLAINTS OF PAIN THIS SHIFT. CONTINUES ON O2 VIA NON-REBREATHER MASK @ 15L WITH NO SIGNS OR SYMPTOMS OF RESPIRATORY DISTRESS NOTED. ADMINISTERED DOSE OF ACTEMRA IV THIS SHIFT. NO SIGNS OR SYMPTOMS OF ADVERSE REACTIONS NOTED. PATIENT TOLERATED IV WELL. CONTINUES WITH IV ACCESS TO RIGHT UPPER ARM WHICH IS INTACT AND PATENT. CALL LIGHT WITHIN REACH. ASPIRATION, FALL AND SAFETY PRECAUTIONS MAINTAINED. WILL ENDORSE PLAN OF CARE TO ONCOMING SHIFT.
[2020-08-25 20:00] VITALS: BP 118/80
--- NOTE | 2020-08-25 20:49 | NUR ---
TELE/RN OPENING NOTES RECEIVED PATIENT IN BED RESTING. PATIENT IS ALERT AND ORIENTED X 3. PATIENT BREATHING IS EVEN AND UNLABORED. NO SIGNS OF SOB OR RESPIRATORY DISTRESS NOTED. PATIENT PATIENT HAS IV ACCESS ON BRANT MIDLINE #18G INTACT. SAFETY MEASURES ARE IN PLACE, BED IS LOCKED AND PLACED IN THE LOWEST POSITION, CALL LIGHT IS WITHIN REACH. WILL CONTINUE TO MONITOR THROUGH OUT SHIFT.
[2020-08-26] VITALS (7 sets, daily range): BP systolic 102–121; BP diastolic 64–78
--- NOTE | 2020-08-26 06:50 | NUR ---
TELE/RN CLOSING NOTES PATIENT IN BED RESTING. PATIENT IS ALERT AND ORIENTED X 3. PATIENT BREATHING IS EVEN AND UNLABORED. NO SIGNS OF SOB OR RESPIRATORY DISTRESS NOTED. TELE READING SR 88. PATIENT PATIENT HAS IV ACCESS ON BRANT MIDLINE #18G INTACT. SAFETY MEASURES ARE IN PLACE, BED IS LOCKED AND PLACED IN THE LOWEST POSITION, CALL LIGHT IS WITHIN REACH. WILL ENDORSE CARE TO DAY SHIFT NURSE.
[2020-08-26] MEDS: PANTOPRAZOLE 40 MG TABLET.DR PO SCH (07:28)
--- NOTE | 2020-08-26 07:50 | NUR ---
INSTALLMENT LOAN COLLECTOR OPENING NOTES RECEIVED PT ON BED, AAOX4, POLISH/MOHAWK SPEAKING. RESPIRATION EVEN AND UNLABORED AT REST, WITH SOB IN EXERTION LIKE TRANSFER TO BSC. PT ON NRB MASK, TOLERATING WELL AT 92%. ABD SOFT AND NON DISTENDED WITH ACTIVE BOWEL SOUNDS. PT DENIES PAIN AND DISCOMFORT. SKIN WARM TO TOUCH AND DRY. IV SITE AT BRANT MIDLINE PATENT IN FLUSHING, NO S/X OF INFILTRATION ON SITE. TELE MONITOR SHOWS SR 74. ON CONTACT/DROPLET ISOLATION DUE TO COVID-19 POSITIVE. BED IN LOW LOCKED POSITION, SRX2 UP FOR SAFETY, BLE OFFLOAD, CALL LIGHT WITHIN REACH. WILL CONTINUE TO EVALUATE CARE.
[2020-08-26] MEDS: ENSURE ENLIVE 237 ML LIQUID (VANILLA) PO SCH ×2 (08:19→16:02)
[2020-08-26] MEDS: CYANOCOBALAMIN 500 MCG TABLET PO SCH (08:34)
[2020-08-26] MEDS: ASCORBIC ACID 500 MG TABLET PO SCH (08:34)
[2020-08-26] MEDS: LOSARTAN POTASSIUM 50 MG TABLET PO SCH (08:34)
[2020-08-26] MEDS: METOPROLOL SUCCINATE 25 MG TAB.SR.24H PO SCH (08:34)
[2020-08-26] MEDS: DOCUSATE SODIUM 100 MG CAPSULE PO SCH (08:34)
[2020-08-26] MEDS: ATORVASTATIN 10 MG TABLET PO SCH (08:34)
[2020-08-26] MEDS: ENOXAPARIN SODIUM 40 MG/0.4 ML DISP.SYRIN SQ SCH ×2 (08:35→20:10)
[2020-08-26] MEDS: DEXAMETHASONE SOD PHOSPHATE 10 MG/ML VIAL IV SCH (08:35)
[2020-08-26] MEDS: ZINC SULFATE 220 MG CAPSULE PO SCH (08:35)
[2020-08-26] MEDS: LEVOFLOXACIN (250MG) 250 MG TABLET PO SCH (08:35)
--- NOTE | 2020-08-26 09:26 | NUR ---
RAG CUTTING MACHINE TENDER NOTES PT SEEN AND EVALUATED BY DR. SAHA. NO NEW ORDER RECEIVED. CONT TO MONITOR CARE
--- NOTE | 2020-08-26 19:14 | NUR ---
ELECTRICAL DISCHARGE MACHINE OPERATOR CLOSING NOTES PT AAOX4, RESPONSIVE TO ALL STIMULI. TOLERATING O2 NRB MASK SATING 96-98%, SOB IN EXERTION WITH BSC. DENIES PAIN AND DISCOMFORT. SKIN WARM TO TOUCH AND DRY. BMX1 TODAY. TELE MONITOR SHOWS SINUS RHYTHM. ON CONTACT/DROPLET ISOLATION FOR COVID-19. PPE UTILIZED PER HOSPITAL PROTOCOL. IV SITE INTACT, NO S/SX OF INFILTRATION. ALL CONCERNS ATTENDED, BED IN LOW LOCKED POSITION, SRX2 UP FOR SAFETY. ENDORSED CARE TO NEXT SHIFT.
--- NOTE | 2020-08-26 19:30 | NUR ---
juvenile counselor opening notes Pt is resting in bed comfortably. Pt is alert and orientedX4. Pt speaks Bulgarian and able to make needs known. Respiration on 15 L nonrebreather mask with O2 sat is 99%. No SOB. No S/S of distress noted. Tele monitor showed BRANT midline# 18 is clean, intact, flushes well and SL. Safety precautions is maintained. Bed at low position, brakes locked, side rails upX2 and call light is within reach. Will continue to monitor.
[2020-08-27] VITALS: BP 116/71
[2020-08-27 04:00] VITALS: BP 109/76
[2020-08-27 06:53] LABS: BASOPHILS % (AUTO) 0.7 % (0.0-2.0); EOSINOPHILS % (AUTO) 6.5 % (0.0-6.0); HEMATOCRIT 32 % (33-45); HEMOGLOBIN 10.9 g/dL (11.5-14.8); LYMPHOCYTES # (AUTO) 1.1 /CMM (0.8-4.8); LYMPHOCYTES % (AUTO) 15.5 % (20.0-44.0); MEAN CORPUSCULAR HGB CONC 34 g/dl (31.0-36.0); MEAN CORPUSCULAR VOLUME 92 fL (82-100); MONOCYTES # (AUTO) 0.3 /CMM (0.1-1.30); MONOCYTES % (AUTO) 4.6 % (2.0-12.0); NEUTROPHILS # (AUTO) 5.1 /CMM (1.8-8.9); NEUTROPHILS % (AUTO) 72.7 % (43.0-81.0); PLATELET COUNT (AUTO) 345 /CMM (150-450)
--- NOTE | 2020-08-27 07:07 | NUR ---
CURRICULUM AND INSTRUCTION SPECIALIST OPENING NOTE RECEIVED PT AWAKE IN BED AT THIS TIME. AOX4. PT SPEAKS SPANISH. PT ABLE TO MAKE NEEDS KNOWN. NO SOB NOTED, NO S/S OF ANY APPARENT DISTRESS NOTED, NO S/O PAIN AT THIS TIME. PT NOTED ON EXTERNAL TELE SHIPPING LEAD, READING SR 84. PT NOTED ON OXYGEN @15LPM NRB. BRANT MIDLINE NOTED, INTACT, PATENT AND FLUSHING WELL. ASPIRATIONS AND SAFETY PRECAUTIONS IN PLACE AND MAINTAINED AT ALL TIMES. BED IN LOWEST LOCKED POSITION, SIDE RAILS UP, HOB ELEVATED, TABLE AND CALL LIGHT WITHIN REACH. WILL CONTINUE TO MONITOR.
--- NOTE | 2020-08-27 07:15 | NUR ---
admissions nurse closing notes Pt is resting in bed comfortably. Pt is alert and orientedX4. Pt speaks English and able to make needs known. Respiration on 15 L nonrebreather mask with O2 sat is 99%. No SOB. No S/S of distress noted. Tele monitor showed SR HR at 96. VS is stable. Afebrile. BRANT midline# 18 is clean, intact, flushes well and SL. Routine meds were given as ordered. Kept Pt clean, dry and comfortable. Safety precautions is maintained. Bed at low position, brakes locked, side rails upX2 and call light is within reach. Will endorse to morning nurse for DESTINY.
[2020-08-27 07:48] LABS: BILIRUBIN,TOTAL 0.3 mg/dL (0.2-1.0); CALCIUM, SERUM 9.2 mg/dL (8.5-10.1); CREATININE 0.7 mg/dL (0.6-1.3); MAGNESIUM 2.1 mg/dL (1.8-2.4); PHOSPHORUS 3.2 mg/dL (2.5-4.9); POTASSIUM 5.6 mmol/L (3.5-5.1); TOTAL PROTEIN, SERUM 6.2 g/dL (6.4-8.2)
[2020-08-27 08:00] VITALS: BP 105/67
[2020-08-27] MEDS: ATORVASTATIN 10 MG TABLET PO SCH (08:28)
[2020-08-27] MEDS: PANTOPRAZOLE 40 MG TABLET.DR PO SCH (08:29)
[2020-08-27] MEDS: CYANOCOBALAMIN 500 MCG TABLET PO SCH (08:29)
[2020-08-27] MEDS: DOCUSATE SODIUM 100 MG CAPSULE PO SCH (08:29)
[2020-08-27] MEDS: LEVOFLOXACIN (250MG) 250 MG TABLET PO SCH (08:29)
[2020-08-27] MEDS: DEXAMETHASONE SOD PHOSPHATE 10 MG/ML VIAL IV SCH (08:29)
[2020-08-27] MEDS: ASCORBIC ACID 500 MG TABLET PO SCH (08:30)
[2020-08-27] MEDS: ZINC SULFATE 220 MG CAPSULE PO SCH (08:30)
[2020-08-27] MEDS: ENOXAPARIN SODIUM 40 MG/0.4 ML DISP.SYRIN SQ SCH ×2 (08:31→21:32)
[2020-08-27] MEDS: ENSURE ENLIVE 237 ML LIQUID (VANILLA) PO SCH ×2 (08:32→17:09)
[2020-08-27] MEDS: LOSARTAN POTASSIUM 50 MG TABLET PO SCH (08:38)
[2020-08-27] MEDS: METOPROLOL SUCCINATE 25 MG TAB.SR.24H PO SCH (08:39)
--- NOTE | 2020-08-27 09:30 | NUR ---
RECEIVED ORDERS FROM DR HUGHES TO TITRATE PT OFF 15LPM NON REBREATHER TO FACE MASK @10LPM AND MONITOR. ORDERS READ BACK AND CARRIED OUT. WILL CONTINUE TO MONITOR
--- NOTE | 2020-08-27 10:00 | NUR ---
PT NOTED TO DESATURATE WITH SPO2 BETWEEN 77% - 80% ON A 10LPM FACE MASK. DOCTOR ANDONIAN MADE AWARE. PER DOCTOR ANDONIAN, TITRATE PT BACK ON OXYGEN @15LPM NON REBREATHER. ORDERS READ BACK AND CARRIED OUT. WILL CONTINUE TO MONITOR AND CONTINUE WITH PLAN OF CARE
[2020-08-27 12:00] VITALS: BP 100/65
[2020-08-27 16:00] VITALS: BP 105/73
[2020-08-27] MEDS ORDERED: SODIUM POLYSTYRENE SULFONATE 15 G/60 ML BOTTLE PO ONE (16:00)
--- NOTE | 2020-08-27 16:57 | NUR ---
RASHAUN STEPHEN([id number]), PT's GRAND DAUGHTER UPDATED ON PATIENT'S STATUS. WILL CONTINUE WITH PLAN OF CARE
--- NOTE | 2020-08-27 19:02 | NUR ---
RN CLOSING NOTES PT AWAKE IN BED AT THIS TIME. PT REMAINED STABLE THROUGHOUT SHIFT. PT ON 15LPM NON REBREATHER SATURATING @ 96% AT THIS TIME. ALL CARE, NEED, MEDICATIONS AND TREATMENT ADMINISTERED ANTICIPATED PER ORDER. PT KEPT CLEAN AND DRY. LINEN CHANGED AND KEPT CLEAN. PT ASSISTED TO USE BEDSIDE COMMODE. ASPIRATION, RESPIRATION AND SAFETY PRECAUTION IN PLACE AND MAINTAINED AT ALL TIMES. BED IN LOWEST LOCKED POSITION, HOB ELEVATED, SIDE RAILS UP X 2, CALL LIGHT AND TABLE WITHIN REACH. ENDORSED TO NUTRITIONIST PUBLIC HEALTH NURSE FOR DESTINY
[2020-08-27 20:00] VITALS: BP_SYST 134; BP_SYST 154; BP_DIAS 75
--- NOTE | 2020-08-27 20:03 | NUR ---
PT RN OPENING NOTES PT RECEIVED BEDSIDE. ALERT AND ORIENTED x4. LAO SPEAKING. ABLE TO MAKE NEEDS KNOWN. PT ON 15L NONREBREATHER. TOLERATING WELL. NO SOB NOTED AT THIS TIME. SINUS RHYTHM 84. IV ACCESS BRANT MIDLINE G#18. INTACT, PATENT, FLUSHING WELL. NO OCCLUSIONS, NO INFILTRATIONS NOTED AT THIS TIME. PT POTASSIUM WAS 5.6, KAYEXALATE GIVEN. WILL CONTINUE TO MONITOR POTASSIUM LEVELS. ISOLATION PRECAUTION IN PLACE. SAFETY PRECAUTIONS IN PLACE. WILL CONTINUE MONITOR O2 SATURATION. WILL CONTINUE PLAN OF CARE.
[2020-08-28] VITALS (7 sets, daily range): BP systolic 99–127; BP diastolic 68–83
--- NOTE | 2020-08-28 07:00 | NUR ---
RN CLOSING NOTES PT LAYING IN BED. ALERT AND ORIENTED x4. KHMER SPEAKING. ABLE TO MAKE NEEDS KNOWN. PT ON 15L NONREBREATHER. TOLERATING WELL. NO SOB NOTED AT THIS TIME. IV ACCESS BRANT MIDLINE G#18. INTACT, PATENT, FLUSHING WELL. NO OCCLUSIONS, NO INFILTRATIONS NOTED AT THIS TIME. PT POTASSIUM WAS 5.6 ON 08/28/20, KAYEXALATE GIVEN. PT 2 BOWEL MOVEMENTS LASTNIGHT. WILL CONTINUE TO MONITOR POTASSIUM LEVELS. ISOLATION PRECAUTION IN PLACE. SAFETY PRECAUTIONS IN PLACE. CALL LIGHT WITHIN REACH. BED LOCKED. BED SEMI FOWLERS. BED IN LOWEST POSITION. WILL CONTINUE MONITOR O2 SATURATION. WILL ENDORSE TO UPCOMING SHIFT. WILL CONTINUE PLAN OF CARE.
--- NOTE | 2020-08-28 08:12 | NUR ---
MGMT CONSULTANT NOTE PATIENT IN BED RESTING COMFORTABLY. PATIENT IN NO ACUTE DISTRESS. NO SOB NOTED. PATIENT BREATHING IS EVEN AND UNLABORED. PATIENT SAFETY PRECAUTIONS IN PLACE. ISOLATION PRECAUTIONS IN PLACE. PATIENT BED IS LOCKED AND IN LOWEST POSITION. CALL LIGHT WITHIN REACH. WILL CONTINUE TO MONITOR.
[2020-08-28] MEDS: ATORVASTATIN 10 MG TABLET PO SCH (08:27)
[2020-08-28] MEDS: DEXAMETHASONE SOD PHOSPHATE 10 MG/ML VIAL IV SCH (08:27)
[2020-08-28] MEDS: METOPROLOL SUCCINATE 25 MG TAB.SR.24H PO SCH (08:28)
[2020-08-28] MEDS: PANTOPRAZOLE 40 MG TABLET.DR PO SCH (08:28)
[2020-08-28] MEDS: ZINC SULFATE 220 MG CAPSULE PO SCH (08:28)
[2020-08-28] MEDS: ASCORBIC ACID 500 MG TABLET PO SCH (08:28)
[2020-08-28] MEDS: DOCUSATE SODIUM 100 MG CAPSULE PO SCH (08:28)
[2020-08-28] MEDS: LEVOFLOXACIN (250MG) 250 MG TABLET PO SCH (08:28)
[2020-08-28] MEDS: LOSARTAN POTASSIUM 50 MG TABLET PO SCH (08:28)
[2020-08-28] MEDS: CYANOCOBALAMIN 500 MCG TABLET PO SCH (08:29)
[2020-08-28] MEDS: ENOXAPARIN SODIUM 40 MG/0.4 ML DISP.SYRIN SQ SCH ×2 (08:31→20:50)
[2020-08-28] MEDS: ENSURE ENLIVE 237 ML LIQUID (VANILLA) PO SCH ×2 (08:36→16:08)
--- NOTE | 2020-08-28 16:18 | NUR ---
BLEACH MAKER NOTE PER DR. HUGHES TITRATE PATIENT TO SIMPLE MASK 10L. PATIENT ATTEMPTED TO USE SIMPLE MASK 10L BUT DESATURATED TO LOW 80'S SPO2 AND DID NOT TOLERATE WELL. PATIENT PLACED BACK ON NON REBREATHER MASK 13L SATURATING 95% SPO2.
--- NOTE | 2020-08-28 18:25 | NUR ---
BROADLOOM WEAVER NOTE PATIENT IN BED RESTING COMFORTABLY. PATIENT IN NO ACUTE DISTRESS. NO SOB NOTED. PATIENT BREATHING IS EVEN AND UNLABORED. PATIENT KEPT CLEAN, DRY, AND COMFORTABLE THROUGHOUT SHIFT. PATIENT ON PHOTOGRAPH INSPECTOR READING SINUS RHYTHM HR 95. NEEDS AND CONCERNS ADDRESSED. PATIENT SAFETY PRECAUTIONS IN PLACE. ISOLATION PRECAUTIONS IN PLACE. PATIENT BED IS LOCKED AND IN LOWEST POSITION. CALL LIGHT WITHIN REACH. WILL ENDORSE CARE TO PM SHIFT FOR DESTINY.
--- NOTE | 2020-08-28 20:01 | NUR ---
RN OPENING NOTES PT RECEIVED BEDSIDE. ALERT AND ORIENTED x4. TELUGU SPEAKING. ABLE TO MAKE NEEDS KNOWN. PT ON 12L NONREBREATHER. TOLERATING WELL. NO SOB NOTED AT THIS TIME. SINUS RHYTHM 85. IV ACCESS BRANT MIDLINE G#18. INTACT, PATENT, FLUSHING WELL. NO OCCLUSIONS, NO INFILTRATIONS NOTED AT THIS TIME. ISOLATION PRECAUTION IN PLACE. SAFETY PRECAUTIONS IN PLACE. WILL CONTINUE MONITOR O2 SATURATION. BED LOCKED. LOWEST POSITION. SEMI FOWLERS. WILL CONTINUE PLAN OF CARE.
[2020-08-29] VITALS: BP_SYST 108; BP_DIAS 72; BP_DIAS 73
[2020-08-29 04:00] VITALS: BP 125/75
[2020-08-29 06:52] LABS: BASOPHILS % (AUTO) 0.2 % (0.0-2.0); EOSINOPHILS % (AUTO) 8.6 % (0.0-6.0); HEMATOCRIT 32 % (33-45); HEMOGLOBIN 10.9 g/dL (11.5-14.8); LYMPHOCYTES # (AUTO) 0.9 /CMM (0.8-4.8); LYMPHOCYTES % (AUTO) 13.7 % (20.0-44.0); MEAN CORPUSCULAR HGB CONC 34 g/dl (31.0-36.0); MEAN CORPUSCULAR VOLUME 92 fL (82-100); MONOCYTES # (AUTO) 0.3 /CMM (0.1-1.30); MONOCYTES % (AUTO) 3.8 % (2.0-12.0); NEUTROPHILS # (AUTO) 5.1 /CMM (1.8-8.9); NEUTROPHILS % (AUTO) 73.7 % (43.0-81.0); PLATELET COUNT (AUTO) 365 /CMM (150-450); RED BLOOD CELL COUNT(AUTO) 3.47 MIL/uL (4.0-5.2); WHITE BLOOD COUNT (AUTO) 6.9 K/uL (4.3-11.0)
[2020-08-29 07:21] LABS: ALBUMIN 2.2 g/dL (3.4-5.0); BILIRUBIN,TOTAL 0.3 mg/dL (0.2-1.0); CALCIUM, SERUM 8.7 mg/dL (8.5-10.1); CREATININE 0.6 mg/dL (0.6-1.3); PHOSPHORUS 3.2 mg/dL (2.5-4.9); POTASSIUM 3.9 mmol/L (3.5-5.1)
--- NOTE | 2020-08-29 07:33 | NUR ---
PT RN CLOSING NOTES PT LAYING IN BED. ALERT AND ORIENTED x4. DIVEHI SPEAKING. ABLE TO MAKE NEEDS KNOWN. PT ON 15L NONREBREATHER. TOLERATING WELL. NO SOB NOTED AT THIS TIME. SINUS RHYTHM 84. IV ACCESS BRANT MIDLINE G#18. INTACT, PATENT, FLUSHING WELL. NO OCCLUSIONS, NO INFILTRATIONS NOTED AT THIS TIME. WILL CONTINUE TO MONITOR POTASSIUM LEVELS. ISOLATION PRECAUTION IN PLACE. SAFETY PRECAUTIONS IN PLACE. WILL ENDORSE TO UPCOMING SHIFT. WILL CONTINUE MONITOR O2 SATURATION. WILL CONTINUE PLAN OF CARE.
[2020-08-29 08:00] VITALS: BP 107/72
[2020-08-29] MEDS: PANTOPRAZOLE 40 MG TABLET.DR PO SCH (08:39)
[2020-08-29] MEDS: ENSURE ENLIVE 237 ML LIQUID (VANILLA) PO SCH ×2 (08:39→16:21)
[2020-08-29] MEDS: DEXAMETHASONE SOD PHOSPHATE 10 MG/ML VIAL IV SCH (08:53)
[2020-08-29] MEDS: LEVOFLOXACIN (250MG) 250 MG TABLET PO SCH (08:53)
[2020-08-29] MEDS: ENOXAPARIN SODIUM 40 MG/0.4 ML DISP.SYRIN SQ SCH ×2 (08:53→21:40)
[2020-08-29] MEDS: CYANOCOBALAMIN 500 MCG TABLET PO SCH (08:54)
[2020-08-29] MEDS: DOCUSATE SODIUM 100 MG CAPSULE PO SCH (08:54)
[2020-08-29] MEDS: ASCORBIC ACID 500 MG TABLET PO SCH (08:54)
[2020-08-29] MEDS: ZINC SULFATE 220 MG CAPSULE PO SCH (08:54)
[2020-08-29] MEDS: ATORVASTATIN 10 MG TABLET PO SCH (08:54)
[2020-08-29] MEDS: METOPROLOL SUCCINATE 25 MG TAB.SR.24H PO SCH (08:55)
[2020-08-29] MEDS: LOSARTAN POTASSIUM 50 MG TABLET PO SCH (08:56)
--- NOTE | 2020-08-29 10:17 | NUR ---
TELE/RN OPENING NOTE Received patient awake in bed, A&O x 4, Kazakh speaking. Denies pain/discomfort at this time. Breathing even and non-labored on 12 L oxygen via NRB, saturating at 91%. No respiratory or cardiac distress noted. On tele monitor, reading SR 86. Midline access noted on BRANT #18, patent and intact, and flushing well. Bed locked to its lowest position, side rails x 2 up, call light in hand. Will continue with current medical management.
--- NOTE | 2020-08-29 11:11 | NUR ---
TELE/RN NOTE - ISOLATION Arpi from infection control called, to follow up with [facility] on whether to have patient remain on covid isolation precautions since patient has been here for 21 days per CDC guidelines. Notified Dr. Dobbs, ordered to d/c covid isolation precautions. Order carried out.
[2020-08-29 12:00] VITALS: BP 102/64
[2020-08-29 16:00] VITALS: BP 114/78
--- NOTE | 2020-08-29 18:55 | NUR ---
TELE/RN CLOSING NOTE Patient awake in bed, A&O x 4. All needs met and attended to. Denies pain/discomfort at this time. Breathing even and non-labored on 12 L oxygen via NRB, saturating at 91%. No respiratory or cardiac distress noted. On tele monitor, reading SR 96. Midline access noted on BRANT #[id number], patent and intact, and flushing well. Fall precautions maintained. Will endorse to hourly shift manager nurse.
[2020-08-29 20:00] VITALS: BP 124/81
--- NOTE | 2020-08-29 20:00 | NUR ---
RN NOTE PT RECEIVED IN BED A/A/O X3. PT IS ON 12L VIA NON REBREATHER SATING 96%. PT HAS UNLABORED BREATHING. TELE MONITOR SHOWING SR WITH HR IN 70s. SAFETY MEASURES IN PLACE.
[2020-08-30] VITALS: BP_SYST 118; BP_SYST 120; BP_DIAS 65; BP_DIAS 74
[2020-08-30 04:00] VITALS: BP 124/76
[2020-08-30 07:21] LABS: BASOPHILS % (AUTO) 0.7 % (0.0-2.0); HEMATOCRIT 33 % (33-45); HEMOGLOBIN 11.1 g/dL (11.5-14.8); LYMPHOCYTES # (AUTO) 0.9 /CMM (0.8-4.8); LYMPHOCYTES % (AUTO) 14.5 % (20.0-44.0); MEAN CORPUSCULAR HGB CONC 34 g/dl (31.0-36.0); MEAN CORPUSCULAR VOLUME 92 fL (82-100); MONOCYTES # (AUTO) 0.2 /CMM (0.1-1.30); MONOCYTES % (AUTO) 3.3 % (2.0-12.0); NEUTROPHILS # (AUTO) 4.7 /CMM (1.8-8.9); NEUTROPHILS % (AUTO) 74.5 % (43.0-81.0); PLATELET COUNT (AUTO) 364 /CMM (150-450); RED BLOOD CELL COUNT(AUTO) 3.54 MIL/uL (4.0-5.2); WHITE BLOOD COUNT (AUTO) 6.4 K/uL (4.3-11.0)
--- NOTE | 2020-08-30 07:38 | NUR ---
RN NOTE PT REMAINED STABLE DURING MY SHIFT NO ACUTE CHANGES REPORT GIVEN TO INCOMING PT FOR DESTINY.
[2020-08-30 08:00] VITALS: BP 113/76
[2020-08-30] MEDS: ENSURE ENLIVE 237 ML LIQUID (VANILLA) PO SCH ×2 (08:00→17:50)
--- NOTE | 2020-08-30 08:00 | NUR ---
RN Opening note Received patient in bed, awaken able to responds all stimuli, Pt does no c/o pain or distress. Skin is warm to touch keep clean/dry intact IV site, respiratory even and unlabored with oxygen at 12L via NRM O2sat 96%. Kept locked bed with elevated HOB for aspiration precaution and ensure airway and lowest bed foe safety. Call light within reach, will continue to monitor.
[2020-08-30] MEDS: PANTOPRAZOLE 40 MG TABLET.DR PO SCH (08:10)
[2020-08-30 08:15] LABS: CALCIUM, SERUM 8.7 mg/dL (8.5-10.1); CREATININE 0.6 mg/dL (0.6-1.3); PHOSPHORUS 3.3 mg/dL (2.5-4.9); POTASSIUM 3.9 mmol/L (3.5-5.1)
[2020-08-30] MEDS: LOSARTAN POTASSIUM 50 MG TABLET PO SCH (09:00)
[2020-08-30] MEDS: METOPROLOL SUCCINATE 25 MG TAB.SR.24H PO SCH (09:00)
[2020-08-30] MEDS: ASCORBIC ACID 500 MG TABLET PO SCH (09:03)
[2020-08-30] MEDS: CYANOCOBALAMIN 500 MCG TABLET PO SCH (09:03)
[2020-08-30] MEDS: ZINC SULFATE 220 MG CAPSULE PO SCH (09:04)
[2020-08-30] MEDS: ATORVASTATIN 10 MG TABLET PO SCH (09:04)
[2020-08-30] MEDS: DOCUSATE SODIUM 100 MG CAPSULE PO SCH (09:04)
[2020-08-30] MEDS: LEVOFLOXACIN (250MG) 250 MG TABLET PO SCH (09:04)
[2020-08-30] MEDS: DEXAMETHASONE SOD PHOSPHATE 10 MG/ML VIAL IV SCH (09:04)
[2020-08-30] MEDS: ENOXAPARIN SODIUM 40 MG/0.4 ML DISP.SYRIN SQ SCH ×2 (09:16→20:44)
--- NOTE | 2020-08-30 17:46 | NUR ---
RN closing Patient in bed resting, does no appears distress or discomfort. Skin is warm to touch, keep clean/dry, intact midline on right upper arm. Respiratory even and unlabored with oxygen simple mask at 11L O2sat 98%. Kept elevated HOB for ensure air way and aspiration precaution and lowest bed for safety. Call light within reach, will endorse director of solutions architecture
[2020-08-30 18:50] VITALS: BP 113/76
[2020-08-30 20:00] VITALS: BP 124/75
--- NOTE | 2020-08-30 20:00 | NUR ---
RN NOTES RECEIVED PT IN BED, ALERT AND ORIENTED X 4. ON O2 VIA SIMPLE MASK AT 10L. DENIES ANY SOB. NO RESP DISTRESS NOTED. ON TELE MONITORING SHOWS SINUS RHYTHM WITH HR OF 98. PT DENIES ANY PAIN AT THIS TIME. BRANT MIDLINE PATENT AND INTACT, FLUSHED. ALL SAFETY MEASURES IMPLEMENTED PER PROTOCOL. BED LOCKED IN LOWEST POSITION, CALL LIGHT WITHIN REACH. SIDE RAILS UP X2.
--- NOTE | 2020-08-30 23:00 | NUR ---
RN NOTE PT ASSISTED TO BEDSIDE COMMODE. O2 SAT WENT DOWN TO 83% ON 10L O2. SWITCH TO NONREBREATHER AT 15L. O2SAT WENT TO 98 %. KEPT HOB ELEVATED.
[2020-08-31] VITALS: BP 126/82
--- NOTE | 2020-08-31 00:59 | NUR ---
RN NOTE PT SLEEPING STILL ON NONREBREATHER AT 15L, O2 SAT AT 100%. TITRATED TO 12L. NO RESP DISTRESS NOTED. WILL CONTINUE TO MONITOR.
--- NOTE | 2020-08-31 03:35 | NUR ---
RN NOTE PT O2 SAT AT 100 % ON 12L NRB. TITRATED IT TO 10L VIA SIMPLE MASK, PT TOLERATING. O2 SAT AT 95 %.
[2020-08-31 04:00] VITALS: BP 114/80
[2020-08-31 06:35] LABS: BASOPHILS % (AUTO) 0.3 % (0.0-2.0); EOSINOPHILS % (AUTO) 6.6 % (0.0-6.0); HEMATOCRIT 33 % (33-45); LYMPHOCYTES % (AUTO) 17.4 % (20.0-44.0); MEAN CORPUSCULAR HGB CONC 34 g/dl (31.0-36.0); MEAN CORPUSCULAR VOLUME 93 fL (82-100); MONOCYTES # (AUTO) 0.2 /CMM (0.1-1.30); MONOCYTES % (AUTO) 2.7 % (2.0-12.0); NEUTROPHILS # (AUTO) 4.1 /CMM (1.8-8.9); PLATELET COUNT (AUTO) 285 /CMM (150-450); RED BLOOD CELL COUNT(AUTO) 3.51 MIL/uL (4.0-5.2); WHITE BLOOD COUNT (AUTO) 5.6 K/uL (4.3-11.0)
--- NOTE | 2020-08-31 06:47 | NUR ---
RN CLOSING NOTES PT REMAIN IN BED, TOLERATING O2 AT 10L VIA SIMPLE MASK. NO RESP DISTRESS NOTED. DENIES ANY PAIN. TELE MONITOR SR WITH HR OF 71. KEPT HOB ELEVATED. KEPT COMFORTABLE. MIDLINE ON BRANT REMAIN INTACT AND PATENT. BED LOCKED IN LOWEST POSITION. CALL LIGHT WITHIN REACH AT ALL TIMES.
[2020-08-31] MEDS: PANTOPRAZOLE 40 MG TABLET.DR PO SCH (06:51)
[2020-08-31 07:06] LABS: CALCIUM, SERUM 8.8 mg/dL (8.5-10.1); CREATININE 0.6 mg/dL (0.6-1.3); MAGNESIUM 2.1 mg/dL (1.8-2.4); PHOSPHORUS 3.4 mg/dL (2.5-4.9); POTASSIUM 3.9 mmol/L (3.5-5.1)
--- NOTE | 2020-08-31 07:23 | NUR ---
WELL SHOOTER OPENING NOTES RECEIVED PATIENT IN BED, AWAKE, A/O X3. PATIENT ON OXYGEN THERAPY AT 10 LPM VIA SIMPLE MASK; BREATHING EVEN NO SOB NOTED AT THIS TIMER. NO COMPLAINS OF PAIN AT THIS MOMENT. BRANT MIDLINE PRESENT AND INTACT. SAFETY PRECAUTIONS IN PLACE; BED IN LOW POSITION AND LOCKED, RAILS UP X2, CALL LIGHT WITHIN REACH. WILL CONTINUE TO MONITOR PATIENT.
[2020-08-31 08:00] VITALS: BP 114/75
[2020-08-31] MEDS: ENSURE ENLIVE 237 ML LIQUID (VANILLA) PO SCH ×2 (08:20→16:15)
[2020-08-31] MEDS: ASCORBIC ACID 500 MG TABLET PO SCH (08:39)
[2020-08-31] MEDS: CYANOCOBALAMIN 500 MCG TABLET PO SCH (08:39)
[2020-08-31] MEDS: DOCUSATE SODIUM 100 MG CAPSULE PO SCH (08:39)
[2020-08-31] MEDS: LEVOFLOXACIN (250MG) 250 MG TABLET PO SCH (08:39)
[2020-08-31] MEDS: ATORVASTATIN 10 MG TABLET PO SCH (08:39)
[2020-08-31] MEDS: METOPROLOL SUCCINATE 25 MG TAB.SR.24H PO SCH (08:40)
[2020-08-31] MEDS: ZINC SULFATE 220 MG CAPSULE PO SCH (08:40)
[2020-08-31] MEDS: DEXAMETHASONE SOD PHOSPHATE 10 MG/ML VIAL IV SCH (08:41)
[2020-08-31] MEDS: ENOXAPARIN SODIUM 40 MG/0.4 ML DISP.SYRIN SQ SCH ×2 (08:42→20:19)
[2020-08-31] MEDS: LOSARTAN POTASSIUM 50 MG TABLET PO SCH (08:42)
--- NOTE | 2020-08-31 19:23 | NUR ---
MIXING PLANT DUMPER CLOSING NOTES PATIENT REMAINS IN BED, AWAKE, A/O X3. PATIENT ON OXYGEN THERAPY AT 15L NRB SATURATING 100% BREATHING EVEN NO SOB NOTED AT THIS TIME. NO COMPLAINS OF PAIN DURING THE DAY. TELE MONITOR WITH A CURRENT READING OF SR. BRANT MIDLINE PRESENT AND INTACT. ALL NEEDS ATTENDED DURING THE DAY. SAFETY PRECAUTIONS IN PLACE; BED IN LOW POSITION AND LOCKED, RAILS UP X2, CALL LIGHT WITHIN REACH. WILL ENDORSE TO BOX ORDER PERSON NURSE.
--- NOTE | 2020-08-31 19:30 | NUR ---
glass bulb silverer opening notes Received Pt in bed resting comfortably. Pt is alert and orientedX3. Pt speaks Japanese and able to make needs known. Respiration on nonrebreather 12 LPM with O2 sat 98%. No SOB. No S/S of distress noted. Tele monitor showed SR hr at 95 bpm. BRANT midline # 18 is clean, intact and flushes well. Safety precautions is maintained. Bed at low position, brakes locked, side rails upX2 and call light is within reach. Will continue to monitor.
[2020-08-31 20:00] VITALS: BP 116/73
[2020-09-01] VITALS: BP 123/69
[2020-09-01 04:00] VITALS: BP 114/81
[2020-09-01 06:37] LABS: BASOPHILS % (AUTO) 0.5 % (0.0-2.0); EOSINOPHILS % (AUTO) 8.7 % (0.0-6.0); HEMATOCRIT 34 % (33-45); HEMOGLOBIN 11.7 g/dL (11.5-14.8); LYMPHOCYTES # (AUTO) 0.9 /CMM (0.8-4.8); LYMPHOCYTES % (AUTO) 15.6 % (20.0-44.0); MEAN CORPUSCULAR HGB CONC 34 g/dl (31.0-36.0); MEAN CORPUSCULAR VOLUME 93 fL (82-100); MONOCYTES # (AUTO) 0.3 /CMM (0.1-1.30); MONOCYTES % (AUTO) 4.5 % (2.0-12.0); NEUTROPHILS % (AUTO) 70.7 % (43.0-81.0); PLATELET COUNT (AUTO) 267 /CMM (150-450); RED BLOOD CELL COUNT(AUTO) 3.72 MIL/uL (4.0-5.2); WHITE BLOOD COUNT (AUTO) 5.6 K/uL (4.3-11.0)
--- NOTE | 2020-09-01 06:38 | NUR ---
area field worker closing notes Pt is resting in bed comfortably. Pt is alert and orientedX3. Pt speaks Hungarian and able to make needs known. Respiration on nonrebreather 12 LPM with O2 sat 99%. No SOB. No S/S of distress noted. VS is stable. Afebrile. Routine meds were given as ordered. Tele monitor showed SR hr at 70 bpm. BRANT midline # 18 is clean, intact and flushes well. Kept Pt clean, dry and comfortable. All needs met and attended. Safety precautions is maintained. Bed at low position, brakes locked, hob elevated, side rails upX2 and call light is within reach. Will endorse to morning nurse for DESTINY.
--- NOTE | 2020-09-01 07:47 | NUR ---
CAREER AND GUIDANCE COUNSELOR NOTE PATIENT IN BED RESTING COMFORTABLY. PATIENT IN NO ACUTE DISTRESS. NO SOB NOTED. PATIENT BREATHING IS EVEN AND UNLABORED. PATIENT ON CARDIAC MONITORING READING SINUS RHYTHM HR 94. PATIENT SAFETY PRECAUTIONS IN PLACE. PATIENT BED ALARM IS ON. PATIENT BED IS LOCKED AND IN LOWEST POSITION. CALL LIGHT WITHIN REACH. WILL CONTINUE TO MONITOR.
[2020-09-01 08:00] VITALS: BP 126/81
[2020-09-01 08:12] LABS: CALCIUM, SERUM 8.8 mg/dL (8.5-10.1); CREATININE 0.6 mg/dL (0.6-1.3); MAGNESIUM 2.2 mg/dL (1.8-2.4); PHOSPHORUS 3.1 mg/dL (2.5-4.9); POTASSIUM 3.8 mmol/L (3.5-5.1)
[2020-09-01] MEDS: ZINC SULFATE 220 MG CAPSULE PO SCH (08:25)
[2020-09-01] MEDS: DOCUSATE SODIUM 100 MG CAPSULE PO SCH (08:25)
[2020-09-01] MEDS: CYANOCOBALAMIN 500 MCG TABLET PO SCH (08:25)
[2020-09-01] MEDS: DEXAMETHASONE SOD PHOSPHATE 10 MG/ML VIAL IV SCH (08:26)
[2020-09-01] MEDS: PANTOPRAZOLE 40 MG TABLET.DR PO SCH (08:26)
[2020-09-01] MEDS: LEVOFLOXACIN (250MG) 250 MG TABLET PO SCH (08:26)
[2020-09-01] MEDS: ATORVASTATIN 10 MG TABLET PO SCH (08:26)
[2020-09-01] MEDS: METOPROLOL SUCCINATE 25 MG TAB.SR.24H PO SCH (08:27)
[2020-09-01] MEDS: LOSARTAN POTASSIUM 50 MG TABLET PO SCH (08:27)
[2020-09-01] MEDS: ASCORBIC ACID 500 MG TABLET PO SCH (08:27)
[2020-09-01] MEDS: ENOXAPARIN SODIUM 40 MG/0.4 ML DISP.SYRIN SQ SCH ×2 (08:28→21:20)
[2020-09-01] MEDS: ENSURE ENLIVE 237 ML LIQUID (VANILLA) PO SCH ×2 (08:38→17:08)
--- NOTE | 2020-09-01 10:27 | NUR ---
[place] MATE NOTE REPORT GIVEN TO IMMACULATE RN FOR TRANSFER OF CARE. PATIENT TRANSFERRED TO ROOM 103 IN [place].
--- NOTE | 2020-09-01 10:53 | NUR ---
discussed with dr. simpson patient more than 21 days post covid positive test and gave orders no need for reswab ,ok to d/c iso.and clear to noncovid floor.nursing masonry supervisor juan carlos notified.
[2020-09-01 12:00] VITALS: BP 116/76
[2020-09-01 16:00] VITALS: BP 99/70
--- NOTE | 2020-09-01 18:37 | NUR ---
MS RN CLOSING NOTES PT AWAKE IN BED AT THIS TIME. PT REMAINED STABLE THROUGHOUT SHIFT. PT REMAINED STABLE ON OXYGEN @12LPM ON NON REBREATHER. ALL CARE, NEED, MEDICATIONS AND TREATMENT ADMINISTERED ANTICIPATED PER ORDER. PT KEPT CLEAN AND DRY. PT ASSISTED WITH BEDPAN/BEDSIDE COMMODE. LINEN CHANGED AND KEPT CLEAN. PT MOTIVATED TO SELF CARE. ASPIRATION, RESPIRATION AND SAFETY PRECAUTION IN PLACE AND MAINTAINED AT ALL TIMES. BED IN LOWEST LOCKED POSITION, HOB ELEVATED, SIDE RAILS UP X 2, CALL LIGHT AND TABLE WITHIN REACH. ENDORSED TO DROP SHIPMENT CLERK NURSE FOR DESTINY
--- NOTE | 2020-09-01 19:30 | NUR ---
TELE/RN OPENING NOTES RECEIVED PATIENT IN BED RESTING. PATIENT IS ALERT AND ORIENTED X 1-2. PATIENT BREATHING IS EVEN AND UNLABORED. NO SIGNS OF SOB OR RESPIRATORY DISTRESS NOTED. PATIENT IN NO SIGNS OF DISTRESS. IV ACCESS IN PLACE FLUSHING WELL. SAFETY MEASURES ARE IN PLACE. BED IS LOCKED AND PLACED IN THE LOW POSITION, SIDE RAILS UP X 3, CALL LIGHT IS WITHIN REACH. WILL CONTINUE TO MONITOR THROUGH OUT SHIFT.
[2020-09-01 20:00] VITALS: BP 110/66
[2020-09-02 04:00] VITALS: BP 115/80
--- NOTE | 2020-09-02 07:00 | NUR ---
TELE/RN CLOSING NOTES PATIENT IN BED SLEEPING EASY TO AROUSE. PATIENT IS ALERT AND ORIENTED X 2-3. PATIENT BREATHING IS EVEN AND UNLABORED. NO SIGNS OF SOB OR RESPIRATORY DISTRESS NOTED. PATIENT IN NO SIGNS OF DISTRESS. IV ACCESS IN PLACE FLUSHING WELL. ALL NEEDS HAVE BEEN MET DURING SHIFT. SAFETY MEASURES ARE IN PLACE. BED IS LOCKED AND PLACED IN THE LOW POSITION, SIDE RAILS UP X 3, CALL LIGHT IS WITHIN REACH. WILL ENDORSE CARE TO DAY SHIFT NURSE.
[2020-09-02 07:40] LABS: BASOPHILS # (AUTO) 0.1 /CMM (0.0-0.2); BASOPHILS % (AUTO) 0.7 % (0.0-2.0); EOSINOPHILS % (AUTO) 7.2 % (0.0-6.0); HEMATOCRIT 35 % (33-45); HEMOGLOBIN 11.7 g/dL (11.5-14.8); LYMPHOCYTES # (AUTO) 1.8 /CMM (0.8-4.8); LYMPHOCYTES % (AUTO) 22.1 % (20.0-44.0); MEAN CORPUSCULAR HGB CONC 33 g/dl (31.0-36.0); MEAN CORPUSCULAR VOLUME 94 fL (82-100); MONOCYTES # (AUTO) 0.3 /CMM (0.1-1.30); MONOCYTES % (AUTO) 4.3 % (2.0-12.0); NEUTROPHILS # (AUTO) 5.3 /CMM (1.8-8.9); NEUTROPHILS % (AUTO) 65.7 % (43.0-81.0); PLATELET COUNT (AUTO) 440 /CMM (150-450); RED BLOOD CELL COUNT(AUTO) 3.77 MIL/uL (4.0-5.2); WHITE BLOOD COUNT (AUTO) 8.1 K/uL (4.3-11.0)
--- NOTE | 2020-09-02 07:41 | NUR ---
CROCHET BEADER OPENING NOTES RECEIVED PATIENT AWAKE IN BED IN NO ACUTE SIGNS OF DISTRESS. HOB ELEVATED. A/O X 2-3. WOLOF SPEAKING BUT UNDERSTANDS BULGARIAN. ON NRB MASK AT 12 LPM AT THIS TIME, TOLERATING WELL WITH NO SOB NOTED. BRANT MIDLINE INTACT, PATENT AND FLUSHES WELL. SAFETY MEASURES ARE IN PLACE: BED IS LOCKED AND IN LOW POSITION, SIDE RAILS UP X 2 AND CALL LIGHT IS WITHIN REACH. WILL CONTINUE TO MONITOR PT ACCORDINGLY. Addendum: 09/02/20 at 0757 by DIPAK FERNANDEZ RN ADDENDUM; PT ON EXTERNAL FUNERAL DIRECTOR/EMBALMER/OWNER WITH CURRENT READING OF NSR W/HR ON THE , NO C/O CARDIAC DISTRESS VOICED. WILL CONTINUE TO MONITOR.
[2020-09-02 08:00] VITALS: BP 110/70
[2020-09-02 08:08] LABS: CALCIUM, SERUM 8.7 mg/dL (8.5-10.1); CREATININE 0.6 mg/dL (0.6-1.3); MAGNESIUM 2.2 mg/dL (1.8-2.4); PHOSPHORUS 3.2 mg/dL (2.5-4.9); POTASSIUM 4.4 mmol/L (3.5-5.1)
[2020-09-02] MEDS: ENOXAPARIN SODIUM 40 MG/0.4 ML DISP.SYRIN SQ SCH ×2 (08:30→20:35)
[2020-09-02] MEDS: CYANOCOBALAMIN 500 MCG TABLET PO SCH (08:31)
[2020-09-02] MEDS: PANTOPRAZOLE 40 MG TABLET.DR PO SCH (08:31)
[2020-09-02] MEDS: ATORVASTATIN 10 MG TABLET PO SCH (08:31)
[2020-09-02] MEDS: LEVOFLOXACIN (250MG) 250 MG TABLET PO SCH (08:31)
[2020-09-02] MEDS: ZINC SULFATE 220 MG CAPSULE PO SCH (08:31)
[2020-09-02] MEDS: LOSARTAN POTASSIUM 50 MG TABLET PO SCH (08:32)
[2020-09-02] MEDS: DEXAMETHASONE SOD PHOSPHATE 10 MG/ML VIAL IV SCH (08:32)
[2020-09-02] MEDS: ASCORBIC ACID 500 MG TABLET PO SCH (08:32)
[2020-09-02] MEDS: DOCUSATE SODIUM 100 MG CAPSULE PO SCH (08:32)
[2020-09-02] MEDS: METOPROLOL SUCCINATE 25 MG TAB.SR.24H PO SCH (08:35)
[2020-09-02] MEDS: ENSURE ENLIVE 237 ML LIQUID (VANILLA) PO SCH ×2 (08:42→17:13)
[2020-09-02 12:00] VITALS: BP 94/71
[2020-09-02 16:00] VITALS: BP 97/65
--- NOTE | 2020-09-02 16:07 | NUR ---
RN NOTES PATIENT PLACED ON 02 VIA N/C AT 6LPM, TOLERATING WELL WITH NO SOB NOTED. SP02 94-97%. ADVICE PT TO CALL FOR ANY ASSISTANCE IN CASE SHE EXPERIENCES SOB, PT VERBALIZED UNDERSTANDING. WILL CONTINUE TO MONITOR.
--- NOTE | 2020-09-02 18:49 | NUR ---
TRANSPORTATION ASSOCIATE CLOSING NOTES PT AWAKE IN BED WITH HOB ELEVATED AT THIS TIME. A/O X 3. PT WAS STABLE THROUGHOUT SHIFT ON N/C AT 6 LPM AT THIS TIME, TOLERATING WELL WITH NO SOB. PT HAS EXTERNAL CLOTH PAINTER, NSR NOTED WITH NO CARDIAC DISTRESS NOTED DURING SHIFT. BRANT MIDLINE INTACT, PATENT AND FLUSHES WELL. ALL NEEDS AND CARE PROVIDED WELL DURING SHIFT. SAFETY MEASURES ARE IN PLACE: BED IS LOCKED AND IN LOWEST POSITION, SIDE RAILS UP X 2. CALL LIGHT PLACED WITHIN REACH. WILL ENDORSE TO MINE GEOLOGIST NURSE FOR CONTINUITY OF CARE.
--- NOTE | 2020-09-02 19:49 | NUR ---
RN OPENING NOTES RECEIVED PATIENT IN BED. RESTING. CALM, COOPERATIVE. ROMANSH SPEAKING. ABLE TO MAKE NEEDS KNOWN. PATIENT IS ALERT AND ORIENTED X3. PT ON 6L NASAL CANNULA. PATIENT BREATHING IS EVEN AND UNLABORED. NO SIGNS OF SOB OR RESPIRATORY DISTRESS NOTED. PATIENT IN NO SIGNS OF DISTRESS. IV ACCESS BRANT MIDLINE IN PLACE FLUSHING WELL. INACT, PATENT. NO OCCLUSIONS, NO INFILTRATIONS NOTED AT THIS TIME. SAFETY MEASURES ARE IN PLACE. BED IS LOCKED AND PLACED IN THE LOW POSITION, SIDE RAILS UP X 3, CALL LIGHT IS WITHIN REACH. WILL CONTINUE TO MONITOR. WILL CONTINUE PLAN OF CARE.
[2020-09-02 20:00] VITALS: BP 117/77
[2020-09-03] VITALS: BP 112/65
[2020-09-03 04:00] VITALS: BP 128/62
--- NOTE | 2020-09-03 07:29 | NUR ---
RN CLOSING NOTES PATIENT LAYING IN BED. RESTING. CALM, COOPERATIVE. YORUBA SPEAKING. ABLE TO MAKE NEEDS KNOWN. GRAND DAUGHTER RASHAUN CALLED TWICE LAST NIGHT ASKING FOR UPDATES. PATIENT IS ALERT AND ORIENTED X3. PT ON 6L NASAL CANNULA. PATIENT BREATHING IS EVEN AND UNLABORED. NO SIGNS OF SOB OR RESPIRATORY DISTRESS NOTED. O2 SATURATION DROPS TO 80S WHEN PT IS MOVING FROM BED TO COMMODE. HOWEVER RECOVERS AFTER 10-15 MINUTES. PT EDUCATED TO TAKE SLOW DEEP BREATHS. PATIENT IN NO SIGNS OF DISTRESS. IV ACCESS BRANT MIDLINE IN PLACE FLUSHING WELL. INTACT, PATENT. NO OCCLUSIONS, NO INFILTRATIONS NOTED AT THIS TIME. SAFETY MEASURES ARE IN PLACE. BED IS LOCKED AND PLACED IN THE LOW POSITION, SIDE RAILS UP X 3, CALL LIGHT IS WITHIN REACH. WILL CONTINUE TO MONITOR. WILL ENDORSE TO NEXT SHIFT.WILL CONTINUE PLAN OF CARE.
--- NOTE | 2020-09-03 07:30 | NUR ---
BLANKET WASHER OPENING NOTES PT RECEIVED AWAKE IN BED WITH NO SIGNS OF DISTRESS, QUIET, CALM WITH NO C/O PAIN AT THIS TIME. HOB ELEVATED. A/O X 3, NEPALI SPEAKING BUT CAN ALSO SPEAK OMANI. CURRENTLY ON NASAL CANNULA AT 6 LPM, TOLERATING WELL WITH NO S/SX SOB NOTED. BRANT MIDLINE INTACT, PATENT AND FLUSHES WELL. PT IS ON EXTERNAL PORTRAIT STUDIO PHOTOGRAPHER WITH CURRENT READING OF NSR AND HR IN THE HIGH 60'S. NO S/SX OR C/O CARDIAC DISTRESS NOTED AT THIS TIME. SAFETY MEASURES IN PLACE: BED IS IN LOWEST, LOCKED POSITION, UPPER SIDE RAILS UP X 2, CALL LIGHT PLACED WITHIN REACH. WILL CONTINUE TO MONITOR.
[2020-09-03 07:54] LABS: CALCIUM, SERUM 8.8 mg/dL (8.5-10.1); CREATININE 0.6 mg/dL (0.6-1.3); MAGNESIUM 2.1 mg/dL (1.8-2.4); PHOSPHORUS 3.2 mg/dL (2.5-4.9); POTASSIUM 3.8 mmol/L (3.5-5.1)
[2020-09-03 07:56] LABS: BASOPHILS % (AUTO) 0.6 % (0.0-2.0); EOSINOPHILS % (AUTO) 3.3 % (0.0-6.0); HEMATOCRIT 33 % (33-45); LYMPHOCYTES # (AUTO) 0.9 /CMM (0.8-4.8); LYMPHOCYTES % (AUTO) 15.4 % (20.0-44.0); MEAN CORPUSCULAR HGB CONC 34 g/dl (31.0-36.0); MEAN CORPUSCULAR VOLUME 92 fL (82-100); MONOCYTES # (AUTO) 0.3 /CMM (0.1-1.30); MONOCYTES % (AUTO) 5.2 % (2.0-12.0); NEUTROPHILS # (AUTO) 4.3 /CMM (1.8-8.9); NEUTROPHILS % (AUTO) 75.5 % (43.0-81.0); PLATELET COUNT (AUTO) 354 /CMM (150-450); RED BLOOD CELL COUNT(AUTO) 3.52 MIL/uL (4.0-5.2); WHITE BLOOD COUNT (AUTO) 5.7 K/uL (4.3-11.0)
[2020-09-03 08:00] VITALS: BP 105/73
[2020-09-03] MEDS: PANTOPRAZOLE 40 MG TABLET.DR PO SCH (08:21)
[2020-09-03] MEDS: ENSURE ENLIVE 237 ML LIQUID (VANILLA) PO SCH ×2 (08:21→17:17)
[2020-09-03] MEDS: DOCUSATE SODIUM 100 MG CAPSULE PO SCH (08:22)
[2020-09-03] MEDS: LOSARTAN POTASSIUM 50 MG TABLET PO SCH (08:22)
[2020-09-03] MEDS: DEXAMETHASONE SOD PHOSPHATE 10 MG/ML VIAL IV SCH (08:22)
[2020-09-03] MEDS: ATORVASTATIN 10 MG TABLET PO SCH (08:23)
[2020-09-03] MEDS: ZINC SULFATE 220 MG CAPSULE PO SCH (08:23)
[2020-09-03] MEDS: METOPROLOL SUCCINATE 25 MG TAB.SR.24H PO SCH (08:23)
[2020-09-03] MEDS: CYANOCOBALAMIN 500 MCG TABLET PO SCH (08:23)
[2020-09-03] MEDS: ASCORBIC ACID 500 MG TABLET PO SCH (08:23)
[2020-09-03] MEDS: ENOXAPARIN SODIUM 40 MG/0.4 ML DISP.SYRIN SQ SCH ×2 (08:29→22:33)
--- NOTE | 2020-09-03 10:24 | NUR ---
RN NOTES PT C/O DISCOMFORT IN THE ABDOMEN AND CHEST. OFFERED PAIN MEDICATION AND PT REFUSED. PT REPOSITIONED TO HIGH REYNOLDS'S POSITION. PT STATED SHE FELT BETTER. PT REMINDED TO USE CALL LIGHT FOR ANY ASSISTANCE. WILL CONTINUE TO MONITOR.
[2020-09-03 16:00] VITALS: BP 111/70
--- NOTE | 2020-09-03 18:50 | NUR ---
MS RN CLOSING NOTES PT IS AWAKE IN BED WITH HOB ELEVATED AT THIS TIME. A/O X 3. PT WAS STABLE THROUGHOUT SHIFT ON NASAL CANNULA AT 6 LPM, TOLERATING WELL WITH NO SOB AT THIS TIME. BRANT MIDLINE INTACT, PATENT AND FLUSHES WELL. ALL NEEDS AND CARE PROVIDED WELL DURING SHIFT. SAFETY MEASURES ARE IN PLACE: BED IN LOWEST LOCKED POSITION, SIDE RAILS UP X 2. CALL LIGHT PLACED WITHIN REACH. WILL ENDORSE TO AUCTION ASSISTANT NURSE FOR CONTINUITY OF CARE.
[2020-09-03 20:00] VITALS: BP 127/73
--- NOTE | 2020-09-03 20:11 | NUR ---
RN NOTES PT IS AWAKE IN BED WITH HOB ELEVATED AT THIS TIME. A/O X 3. PT WAS STABLE ON NASAL CANNULA AT 6 LPM, TOLERATING WELL WITH NO SOB AT THIS TIME. BRANT MIDLINE INTACT, PATENT AND FLUSHES WELL. ALL NEEDS AND CARE PROVIDED AT THIS TIME. SAFETY MEASURES ARE IN PLACE: BED IN LOWEST LOCKED POSITION, SIDE RAILS UP X 2. CALL LIGHT PLACED WITHIN REACH. WILL CONTINUE TO MONITOR.
[2020-09-04 07:52] LABS: BASOPHILS # (AUTO) 0.1 /CMM (0.0-0.2); BASOPHILS % (AUTO) 0.8 % (0.0-2.0); EOSINOPHILS % (AUTO) 4.4 % (0.0-6.0); HEMATOCRIT 34 % (33-45); HEMOGLOBIN 11.3 g/dL (11.5-14.8); LYMPHOCYTES # (AUTO) 1.6 /CMM (0.8-4.8); LYMPHOCYTES % (AUTO) 20.3 % (20.0-44.0); MEAN CORPUSCULAR HGB CONC 33 g/dl (31.0-36.0); MEAN CORPUSCULAR VOLUME 94 fL (82-100); MONOCYTES # (AUTO) 0.3 /CMM (0.1-1.30); MONOCYTES % (AUTO) 4.5 % (2.0-12.0); NEUTROPHILS # (AUTO) 5.4 /CMM (1.8-8.9); PLATELET COUNT (AUTO) 360 /CMM (150-450); RED BLOOD CELL COUNT(AUTO) 3.63 MIL/uL (4.0-5.2); WHITE BLOOD COUNT (AUTO) 7.7 K/uL (4.3-11.0)
[2020-09-04 08:00] VITALS: BP 141/81
--- NOTE | 2020-09-04 08:00 | NUR ---
RN Opening note Received patient in bed, awake, able to responds all stimuli, Pt does no c/o pain or distress. Skin is warm to touch keep clean/dry intact IV site, respiratory even and unlabored with oxygen at 8L via NC O2sat 92-3%. Kept locked bed with elevated HOB for aspiration precaution and ensure airway and lowest bed foe safety. Call light within reach, will continue to monitor.
[2020-09-04] MEDS: ASCORBIC ACID 500 MG TABLET PO SCH (08:14)
[2020-09-04] MEDS: PANTOPRAZOLE 40 MG TABLET.DR PO SCH (08:14)
[2020-09-04] MEDS: ZINC SULFATE 220 MG CAPSULE PO SCH (08:14)
[2020-09-04] MEDS: DOCUSATE SODIUM 100 MG CAPSULE PO SCH (08:14)
[2020-09-04] MEDS: DEXAMETHASONE SOD PHOSPHATE 10 MG/ML VIAL IV SCH (08:14)
[2020-09-04] MEDS: CYANOCOBALAMIN 500 MCG TABLET PO SCH (08:14)
[2020-09-04] MEDS: ATORVASTATIN 10 MG TABLET PO SCH (08:15)
[2020-09-04] MEDS: METOPROLOL SUCCINATE 25 MG TAB.SR.24H PO SCH (08:16)
[2020-09-04] MEDS: LOSARTAN POTASSIUM 50 MG TABLET PO SCH (08:17)
[2020-09-04] MEDS: ENOXAPARIN SODIUM 40 MG/0.4 ML DISP.SYRIN SQ SCH ×2 (08:18→21:45)
[2020-09-04 08:20] LABS: CALCIUM, SERUM 9.1 mg/dL (8.5-10.1); CREATININE 0.7 mg/dL (0.6-1.3); MAGNESIUM 2.1 mg/dL (1.8-2.4); PHOSPHORUS 3.4 mg/dL (2.5-4.9); POTASSIUM 4.9 mmol/L (3.5-5.1)
[2020-09-04] MEDS: ENSURE ENLIVE 237 ML LIQUID (VANILLA) PO SCH ×2 (08:52→17:33)
[2020-09-04 16:00] VITALS: BP 95/59
--- NOTE | 2020-09-04 18:45 | NUR ---
RN closing Patient in bed resting, does no appears distress or discomfort. Skin is warm to touch, keep clean/dry, intact midline on right upper arm. Respiratory even and unlabored with oxygen at 6L via NC, O2sat 92%. Kept elevated HOB for ensure air way and aspiration precaution and lowest bed for safety. Call light within reach, will endorse night supervisor.
--- NOTE | 2020-09-04 19:15 | NUR ---
MSRN FULLY AWAKE, INDONESIAN SPEAKING ABLE TO UNDERSTAND SIMPLE CITIZEN OF [place] AND [place]. KEPT COMFORTABLE, REPOSITIONED FOR COMFORT. ALL NEEDS ATTENDED, CLOSELY WATCHED.
[2020-09-04 20:00] VITALS: BP 109/81
--- NOTE | 2020-09-05 06:00 | NUR ---
MSRN AM CARE DONE. REPOSITIONED FOR COMFORTS. ALL NEEDS ATTENDED.
[2020-09-05] MEDS: ENSURE ENLIVE 237 ML LIQUID (VANILLA) PO SCH ×2 (08:00→17:13)
--- NOTE | 2020-09-05 08:00 | NUR ---
RN OPENING NOTE PT IS CURRENTLY A/O X3 AND KYRGYZ SPEAKING. PT IS ABLE TO MAKE NEEDS KNOWN TO NURSES. CURRENTLY ON 6L O2 VIA NC. DEEP BREATHING PRESENT. PT IS CURRENTLY ON BEDREST. ABLE TO USE BEDPAN WITH ASSISTANCE. HL PRESENT . SAFETY MEASURES IN PLACE. SIDE RAILS RAISED. CALL LIGHT WITHIN REACH. BED LOWERED. WILL CONTINUE TO MONITOR.
[2020-09-05 09:02] VITALS: BP 106/85
[2020-09-05] MEDS: CYANOCOBALAMIN 500 MCG TABLET PO SCH (09:07)
[2020-09-05] MEDS: ATORVASTATIN 10 MG TABLET PO SCH (09:07)
[2020-09-05] MEDS: DEXAMETHASONE SOD PHOSPHATE 10 MG/ML VIAL IV SCH (09:07)
[2020-09-05] MEDS: ZINC SULFATE 220 MG CAPSULE PO SCH (09:07)
[2020-09-05] MEDS: METOPROLOL SUCCINATE 25 MG TAB.SR.24H PO SCH (09:08)
[2020-09-05] MEDS: LOSARTAN POTASSIUM 50 MG TABLET PO SCH (09:08)
[2020-09-05] MEDS: DOCUSATE SODIUM 100 MG CAPSULE PO SCH (09:08)
[2020-09-05] MEDS: PANTOPRAZOLE 40 MG TABLET.DR PO SCH (09:08)
[2020-09-05] MEDS: ASCORBIC ACID 500 MG TABLET PO SCH (09:08)
[2020-09-05] MEDS: ENOXAPARIN SODIUM 40 MG/0.4 ML DISP.SYRIN SQ SCH ×2 (09:10→21:18)
[2020-09-05 10:17] LABS: ABG BASE EXCESS 9.6 mmol/L; ABG OXYGEN SATURATION 84.9 % (92.0-98.5); ABG PCO2 49.4 mmHg (35.0-45.0); ABG PH 7.464 (7.350-7.450); ABG PO2 47.8 mmHg (75.0-100.0); AaDO2 209.6 mmHg; COHb 0.9 % (0.5-1.5); MetHb 0.2 % (0.0-1.5); SITE, ABG Right Radial; VENT MODE, BG NASAL CANNULA
--- NOTE | 2020-09-05 10:30 | NUR ---
RN NOTE RECEIVED CALL FROM RESULTS OF ABG. PT PLACED ON 10L O2 VIA SIMPLE MASK VIA ORDERS OF DR HUGHES. WILL CONTINUE TO MONITOR.
--- NOTE | 2020-09-05 12:50 | NUR ---
RN OPENING NOTE PT IS CURRENTLY A/O X3 AND MACEDONIAN SPEAKING. PT IS ABLE TO MAKE NEEDS KNOWN TO NURSES. CURRENTLY ON 6L O2 VIA NC. DEEP BREATHING PRESENT. PT IS CURRENTLY ON BEDREST. ABLE TO USE BEDPAN WITH ASSISTANCE. HL PRESENT . SAFETY MEASURES IN PLACE. SIDE RAILS RAISED. CALL LIGHT WITHIN REACH. BED LOWERED. WILL CONTINUE TO MONITOR. Addendum: 09/05/20 at 1252 by KHADRA GAMBLE RN TIME OF ASSESSMENT: 0800
[2020-09-05 14:00] VITALS: BP 95/73
--- NOTE | 2020-09-05 18:54 | NUR ---
RN CLOSING NOTE PT IS CURRENTLY A/O X3 AND VIETNAMESE SPEAKING. PT IS ABLE TO MAKE NEEDS KNOWN TO NURSES. CURRENTLY ON 6L O2 VIA NC. DEEP BREATHING PRESENT. PT IS CURRENTLY ON BEDREST. ABLE TO USE BEDPAN WITH ASSISTANCE. HL PRESENT . SAFETY MEASURES IN PLACE. SIDE RAILS RAISED. CALL LIGHT WITHIN REACH. BED LOWERED. ROUTINE MEDS GIVEN. REPORT GIVEN TO NIGHT NURSE.
[2020-09-05 20:00] VITALS: BP 121/70
--- NOTE | 2020-09-05 20:50 | NUR ---
MS RN NOTES RECEIVED ON BED A/O X3,SPEAK TAJIK,WITH LITTLE ARMENIAN,ABLE CONSUMED 25% ON HER DINNER FOOD.ON OXYGEN USED AT 10L/SIMPLE MASK,O2 SAT 91%.MIDLINE SALINE LOCK RIGHT ARM INTACT AND PATENT.CALL LIGHT IN REACH,NEEDS ANTICIPATED.
[2020-09-05 21:46] VITALS: BP 121/70
--- NOTE | 2020-09-06 07:11 | NUR ---
MS RN NOTES NO SIGNIFICANT CHANGE IN STATUS.O2 USED TOLERATED WELL,O2 SAT BETWEEN 91-93%.IN NO ACUTE DISTRESS.
--- NOTE | 2020-09-06 07:25 | NUR ---
MS RN NOTES BEDSIDE ENDORSEMENT DONE. PATIENT IS IN BED RESTING, AWAKE AND VERBALLY RESPONSIVE. A/O X3, ABLE TO MAKE NEEDS KNOWN, SWEDISH-SPEAKING BUT ABLE TO UNDERSTAND SOME NIGERIAN. BREATHING EVEN AND UNLABORED, ON O2 AT 10LPM VIA SIMPLE MASK, NO SOB NOTED. BRANT MIDLINE INTACT AND PATENT. SAFETY PRECS IN PLACE. WILL CONTINUE TO MONITOR..
[2020-09-06] MEDS: PANTOPRAZOLE 40 MG TABLET.DR PO SCH (07:41)
[2020-09-06 08:00] VITALS: BP 113/79
[2020-09-06] MEDS: ENSURE ENLIVE 237 ML LIQUID (VANILLA) PO SCH ×2 (08:01→16:12)
[2020-09-06] MEDS: LOSARTAN POTASSIUM 50 MG TABLET PO SCH (09:00)
--- NOTE | 2020-09-06 09:00 | NUR ---
MS/RN NOTES SCHEDULED DOSE OF [place] FOR 0900 WAS HELD, PT HAD BP WNL 113/79 AND ALREADY BEING ADMINISTERED METOPROLOL
[2020-09-06] MEDS: DEXAMETHASONE SOD PHOSPHATE 10 MG/ML VIAL IV SCH (09:26)
[2020-09-06] MEDS: CYANOCOBALAMIN 500 MCG TABLET PO SCH (09:27)
[2020-09-06] MEDS: DOCUSATE SODIUM 100 MG CAPSULE PO SCH (09:27)
[2020-09-06] MEDS: METOPROLOL SUCCINATE 25 MG TAB.SR.24H PO SCH (09:28)
[2020-09-06] MEDS: ZINC SULFATE 220 MG CAPSULE PO SCH (09:28)
[2020-09-06] MEDS: ASCORBIC ACID 500 MG TABLET PO SCH (09:28)
[2020-09-06] MEDS: ATORVASTATIN 10 MG TABLET PO SCH (09:28)
[2020-09-06] MEDS: ENOXAPARIN SODIUM 40 MG/0.4 ML DISP.SYRIN SQ SCH ×2 (09:36→21:00)
[2020-09-06 16:00] VITALS: BP 104/77
--- NOTE | 2020-09-06 19:02 | NUR ---
MS RN NOTES PATIENT IS IN BED, AWAKE AND VERBALLY RESPONSIVE. A/O X3, ABLE TO MAKE NEEDS KNOWN, BREATHING EVEN AND UNLABORED, CONTINUES ON O2 AT 10LPM VIA SIMPLE MASK, NO SOB NOTED. BRANT MIDLINE INTACT AND PATENT. DUE MEDS GIVEN TODAY. SEEN BY PT BUT UNABLE TO FULLY PARTICIPATE PT COMPLAINTS OF GETTING FATIGUED. ASSISTED W/ BED MOBILITY AND USING BEDPAN. SAFETY PRECS MAINTAINED. WILL ENDORSE TO PANTOMIMIST RN FOR DESTINY.
--- NOTE | 2020-09-06 19:45 | NUR ---
MS RN NOTES RECEIVED ON, ON SITTING POSITION,BREATHING NON LABORED ON O2 AT 10L/SIMPLE MASK., RIGHT ARM MIDLINE INTACT AND PATENT.FALL RISK,BED ON LOWEST POSITION AND LOCKED,CALL LIGHT IN REACH,NEEDS ANTICIPATED.
[2020-09-06 20:31] VITALS: BP 130/74
--- NOTE | 2020-09-07 07:09 | NUR ---
MS RN NOTES FAIRLY RESTED AT NIGHT,NO COMPLAINTS. NO SOB NOTED.IN NO ACUTE DISTRESS,AWAITING BED AT [facility].
--- NOTE | 2020-09-07 07:28 | NUR ---
MS RN NOTES PATIENT IS IN BED RESTING, AWAKE AND VERBALLY RESPONSIVE. A/O X3, ABLE TO MAKE NEEDS KNOWN, MONGOLIAN-SPEAKING BUT ABLE TO UNDERSTAND SOME YI. BREATHING EVEN AND UNLABORED, ON O2 AT 10LPM VIA SIMPLE MASK, NO SOB NOTED. BRANT MIDLINE INTACT AND PATENT. SEEN PATIENT USING CELLPHONE IN BED. SAFETY PRECS IN PLACE. WILL CONTINUE TO MONITOR.
[2020-09-07] MEDS: ENSURE ENLIVE 237 ML LIQUID (VANILLA) PO SCH ×2 (07:41→17:05)
[2020-09-07] MEDS: PANTOPRAZOLE 40 MG TABLET.DR PO SCH (07:41)
[2020-09-07 08:00] VITALS: BP 125/61
[2020-09-07] MEDS: DOCUSATE SODIUM 100 MG CAPSULE PO SCH (08:33)
[2020-09-07] MEDS: CYANOCOBALAMIN 500 MCG TABLET PO SCH (08:33)
[2020-09-07] MEDS: LOSARTAN POTASSIUM 50 MG TABLET PO SCH (08:33)
[2020-09-07] MEDS: ZINC SULFATE 220 MG CAPSULE PO SCH (08:33)
[2020-09-07] MEDS: ASCORBIC ACID 500 MG TABLET PO SCH (08:33)
[2020-09-07] MEDS: ATORVASTATIN 10 MG TABLET PO SCH (08:33)
[2020-09-07 08:34] VITALS: BP 125/61
[2020-09-07] MEDS: METOPROLOL SUCCINATE 25 MG TAB.SR.24H PO SCH (08:34)
[2020-09-07] MEDS: DEXAMETHASONE SOD PHOSPHATE 10 MG/ML VIAL IV SCH (08:34)
[2020-09-07] MEDS: ENOXAPARIN SODIUM 40 MG/0.4 ML DISP.SYRIN SQ SCH (08:36)
[2020-09-07] MEDS ORDERED: ENOX40DI SQ (13:01)
[2020-09-07] MEDS ORDERED: DEXA4TAB68 PO (13:01)
--- NOTE | 2020-09-07 17:17 | NUR ---
RN NOTES SPOKE Ren LERNER, CHARGE NURSE AT [facility], AND TRIED TO GIVE REPORT BUT STATED THAT THEY CANNOT TAKE THE PATIENT AT THIS TIME BECAUSE OF THEY'RE CURRENT STAFFING RATIO; PATIENT WILL DEFINITELY BE RECEIVED AT [place] AT ROOM 55 LONG IT IS AFTER 1830. CHARGE NURSE GISSELL AND FLAT HAMMERER YASMEEN MADE AWARE. TRANSPORTATION ESCORT IN THE UNIT AND WILL AWAIT UNTIL MARITIME PILOT TIME.
--- NOTE | 2020-09-07 19:08 | NUR ---
ICU NURSE NOTES PATIENT SEEN BY DR. DUNCAN TODAY W/ ORDER FOR DISCHARGE TO [facility]. DISCHARGE INSTRUCTIONS AND EDUCATION PROVIDED TO PATIENT AND CHARO DODD, AT [place]; PATIENT REPORT GIVEN. BELONGINGS LIST AND DISCHARGE FORMS SIGNED BY PATIENT. BELONGINGS ACCOUTNED FOR. IV LINE REMOVED. NO SKIN ISSUES NOTED. PATIENT WAS PICKED UP BY [facility] VIA GURNEY ACCOMPANIED BY 2 JOURNEYMAN WELDER. SPOKE W/ GRAND RITA RODNEY, AND MADE AWARE OF PATIENT'S DISCHARGE AND WILL SEE PATIENT DOWN AT THE LOBBY. CHARGE NURSE AND MD AWARE OF DISCHARGE.
== END 2020-09-07 19:01 | DRG 177 ==
LOC: ER 14:08 → TRANSITION 17:18 → TELE2 08-08 00:22 → TELE1 09-01 10:33 → TELE 09-02 00:08 → MED 09-03 11:34
PROVIDERS: ATTEND Nurse Practitioner Acute Care
PROC: XW033E5 Introduction of Remdesivir Anti-infective into Peripheral Vein, Percutaneous Approach, New Technology Group 5 (ICD-10-PCS; principal; 2020-08-06)
PROC: 05H533Z Insertion of Infusion Device into Right Subclavian Vein, Percutaneous Approach (ICD-10-PCS; 2020-08-08)
PROC: B546ZZA Ultrasonography of Right Subclavian Vein, Guidance (ICD-10-PCS; 2020-08-08)
PROC: XW13325 Transfusion of Convalescent Plasma (Nonautologous) into Peripheral Vein, Percutaneous Approach, New Technology Group 5 (ICD-10-PCS; 2020-08-09)
PROC: XW033H5 Introduction of Tocilizumab into Peripheral Vein, Percutaneous Approach, New Technology Group 5 (ICD-10-PCS; 2020-08-25)
DX: U07.1 COVID-19 (principal); J12.82 Pneumonia due to coronavirus disease 2019; J96.01 Acute respiratory failure with hypoxia; J15.9 Unspecified bacterial pneumonia; J96.02 Acute respiratory failure with hypercapnia; J93.9 Pneumothorax, unspecified; E22.2 Syndrome of inappropriate secretion of antidiuretic hormone; I10 Essential (primary) hypertension; E78.5 Hyperlipidemia, unspecified; E87.5 Hyperkalemia; Z79.899 Other long term (current) drug therapy; R74.01 Elevation of levels of liver transaminase levels; J84.112 Idiopathic pulmonary fibrosis; E86.1 Hypovolemia; R74.8 Abnormal levels of other serum enzymes
CPT/HCPCS: 36410; 36415; 36600; 71045-TC; 71250-TC; 80048-TC; 80053-TC; 80061-TC; 80076-TC; 82550-TC; 82728-TC; 82803-TC; 82962-TC; 83605-TC; 83615-TC; 83735-TC; 84100-TC; 84443-TC; 84484-TC; 85025-TC; 85378-TC; 85385-TC; 85610-TC; 85730-TC; 86140-TC; 86480; 86850-TC; 87040-TC; 87081-TC; 87899; 93308-TC; 93970-TC; 94799-TC; 97110-TC; 97112-TC; 97116-TC; 97530-TC; A4216; A4217; C9803; G0378; J0456; J1100; J1200; J1650; J1815; J1956; J3262; J3490; J7030; J7042; J7050; J7060; P9017-BL; U0003